=== PATIENT | male | born 1945 | race Caucasian/White ===

== ENCOUNTER 2018-04-04 10:10 | Observation (INO) | payer MEDICARE ==
[~2018-04-04] VITALS: Ht 185.4 cm; Wt 84.1 kg
--- NOTE | ~2018-04-04 | HEMODYNAMI ---
PATIENT:TIMO FLETCHER MEDICAL RECORD: [id number] : 45 [facility] [id number] ADMISSION DATE: 04/04/18 Generatedon:04/04/201816:54 Patient name: TIMO FLETCHER Patient #: [id number] SSN: : 1945 Date of study: 04/04/2018 Page: Of Hemodynamic Procedure Report Patient Data Patient Demographics Procedure consent was obtained First Name: TIMO Gender: Male Last Name: CHANCE : 1945 Patient #: [id number] Age: 72 year(s) Race: Unknown Additional ID: [id number] Contact details Address: [address] [place] [address] State: [place] City: [place] Zip code: [address] Past Medical History Allergies: No known allergies Admission Admission Data Admission Date: 04/04/2018 Admission Time: 10:10 Lab Results Lab Result Date: 04/04/2018 Lab Result Time: 0:00 Biochemistry Name Units Result Min Max BUN mg/dl 20 --(----)*- 7 18 Creatinine mg/dl 0.9 --(-*--)-- 0.6 1.3 CBC Name Units Result Min Max Hemoglobin g/dl 13.9 --(*---)-- 13.5 17.5 Procedure Procedure Types Cath Procedure Diagnostic Procedure [facility] w/Coronaries PCI Procedure Coronary Stent Coronary Stent Initial Procedure Description Procedure Date Procedure Date: 04/04/2018 Procedure Start Time: 16:41 Procedure End Time: 16:52 Procedure Staff Name Function Alfredo Medellin MD Performing Physician Denia Ordaz RT Monitor Robert Araiza RT Scrub Cesario Em RN Nurse Procedure Data Cath Procedure Fluoroscopy Diagnostic fluoroscopy Total fluoroscopy Time: 2.3 time: 2.3 min min Diagnostic fluoroscopy Total fluoroscopy dose: 137 dose: 137 mGy mGy Contrast Material Contrast Material Type Amount (ml) Isovue 300 59 Entry Location Entry Primary Successful Side Size Upsize Upsize Entry Closure Zambrano ccessful Closure Location (Fr) 1 (Fr) 2 (Fr) Remarks Device Remarks Radial Right 6 Fr Mechanical artery Short Compression Estimated blood loss: 10 ml Diagnostic catheters Device Type Used For End Catheter Placement DIAGNOSTIC Cambridge 110cm 5 Procedure Fr catheter ([id number]) Procedure Complications No complications Procedure Medications Medication Administration Route Dosage Oxygen etCO2 Nasal cannula 2 l/min Heparin Flush Bag added to field 2 bags (1000units/500ml NS) 0.9% NaCl I.V. 100 ml/hr Lidocaine 2% added to field 20 Radial Cocktail added to field 1 syringe (Verapomil 2mg/Nitro 400mcg/Heparin 1500units) Fentanyl I.V. 50 mcg Versed I.V. 1 mg Fentanyl I.V. 50 mcg Versed I.V. 1 mg Heparin Bolus I.V. 4000 units Hemodynamics Rest Heart Rate: 66 (bpm) Snapshots Pre Cath Intra NCS Post Cath Vital Signs Time Heart Resp SPO2 etCO2 NIBP (mmHg) Rhythm Pain Sedation Rate (ipm) (%) (mmHg) Status Level (bpm) 16:35:46 63 17 97 0 138/80(120) NSR 0 (11) 10(A) , No pain 16:40:02 65 16 93 0 117/75(101) NSR 0 (11) 10(A) , No pain 16:44:16 65 16 96 0 106/61(80) NSR 0 (11) 9(A) , No pain 16:48:25 66 17 96 0 106/67(91) NSR 0 (11) 9(A) , No pain 16:50:53 62 16 97 0 108/60(83) NSR 0 (11) 9(A) , No pain Medications Time Medication Route Dose Verified Delivered Reason Not es Effectiveness by by 16:37:00 Oxygen etCO2 2 l/min Alfredo Nassar Per physician Nasal Vignesh Em RN cannula 16:37:08 Heparin Flush added 2 bags Alfredo Nassar used for Bag to Vignesh Em RN procedure (1000units/500ml field NS) 16:37:18 0.9% NaCl I.V. 100 Alfredo Cesario Per physician ml/hr Vignesh Em RN 16:37:27 Lidocaine 2% added 20ml Alfredo Nassar used for to vial Vignesh Em generator man field 16:37:35 Radial Cocktail added 1 Alfredo Nassar used for (Verapomil to syringe Vignesh Em RN procedure 2mg/Nitro field 400mcg/Heparin 1500units) 16:40:04 Fentanyl I.V. 50 mcg Alfredo Nassar for sedation Vignesh Em RN 16:40:10 Versed I.V. 1 mg Alfredo Lowryy for sedation Vignesh Em RN 16:42:09 Fentanyl I.V. 50 mcg Alfredo Nassar for sedation Vignesh Em RN 16:42:14 Versed I.V. 1 mg Alfredo Nassar for sedation Vignesh Em RN 16:46:27 Heparin Bolus I.V. 4000 Alfredo Lowryy for units Vignesh Em RN anticoagulation Procedure Log Time Note 16:10:16 Robert Araiza RT(R) sent for patient. Start room use. 16:18:17 Time tracking: Regular hours (M-F 7:00 - 5:00) 16:18:21 Plan of Care:Hemodynamics will remain stable., Cardiac rhythm will remain stable., Comfort level will be maintained., Respiratory function will remain adequate., Patient/ family verbilizes understanding of procedure., Procedure tolerated without complication., Recovers from procedure without complications.. 16:18:23 Signed procedure consent form obtained from patient. 16:18:24 Diagnostic Cath status Elective 16:18:28 H&P Date Dictated: 04/04/2018 ER History on chart.. 16:24:43 Patient received from ED to CCL 3 Alert and oriented. Tansferred to table in Supine position. 16:24:45 Warm blankets applied, and cyndi hugger turned on for patient comfort. 16:24:46 Correct patient and procedure confirmed by team. 16:24:47 ECG and BP/O2 sat monitors applied to patient. 16:34:38 Vital chart was started 16:36:22 Rhythm: sinus rhythm 16:36:23 Full Disclosure recording started 16:36:24 Pre-procedure instructions explained to patient. 16:36:24 Pre-op teaching completed and patient verbalized understanding. 16:36:26 Family in waiting room. 16:36:27 Patient NPO since Midnight. 16:36:33 Patient allergic to No known allergies 16:36:35 Is patient on blood thinner?Yes 16:36:43 PRE LOADED PLAVIX 16:36:44 Patient diabetic? No. 16:36:47 Previous problem with sedation/anesthesia? No ? 16:36:48 Snore? Yes 16:36:50 Sleep apnea? No 16:36:52 Deviated septum? No 16:36:53 Opens mouth fully? Yes 16:36:53 Sticks out tongue? Yes 16:36:55 Airway obstruction? No ? 16:36:57 Dentures? No ? 16:36:59 Modified Tarik's test Ulnar < 7 seconds 16:37:00 Oxygen 2 l/min etCO2 Nasal cannula was administered by Cesario Em RN; Per physician; 16:37:01 Patient pain scale 0/10 ?. 16:37:06 IV patent on arrival in left hand with 0.9% NaCl at [facility]. 16:37:08 Heparin Flush Bag (1000units/500ml NS) 2 bags added to field was administered by Cesario Em RN; used for procedure; 16:37:18 0.9% NaCl 100 ml/hr I.V. was administered by Cesario Em RN; Per physician; 16:37:27 Lidocaine 2% 20ml vial added to field was administered by Cesario Em RN; used for procedure; 16:37:30 Lab Result : BUN 20 mg/dl 16:37:30 Lab Result : Creatinine 0.9 mg/dl 16:37:30 Lab Result : Hemoglobin 13.9 g/dl 16:37:32 Lab results completed and on chart. 16:37:35 Radial Cocktail (Verapomil 2mg/Nitro 400mcg/Heparin 1500units) 1 syringe added to field was administered by Cesario Em RN; used for procedure; 16:37:35 Right Radial & Right Groin area was prepped with chlora-prep and draped in sterile fashion 16:37:36 Alarms reviewed by R. N. 16:37:36 Sharps counted by scrub and verified by R.N. 16:37:38 Use device set Radial Dx or PCI 16:37:39 ACIST Syringe (58992) opened to sterile field. 16:37:40 Bag Decanter () opened to sterile field. 16:37:41 ACIST Hand Control (02099) opened to sterile field. 16:37:41 ACIST Manifold (87064) opened to sterile field. 16:37:42 Tegaderm 4 x 4 (1626W) opened to sterile field. 16:37:43 Medline Cath Pack ([id number]) opened to sterile field. 16:37:44 DIAGNOSTIC WIRE .035 260cm J wire (806324) opened to sterile field. 16:37:44 MBrace Wrist Support ([id number]) opened to sterile field. 16:37:45 SHEATH 6FR Slender (26-8267) opened to sterile field. 16:37:51 --------ALL STOP TIME OUT------ 16:37:52 Final Timeout: patient, procedure, and site verified with staff and physician. All members of the team are in agreement. 16:37:53 Right Radial & Right Groin site verified by team. 16:37:57 Fire Safety Assessment: A--An alcohol-based skin anteseptic being used preoperatively., C--Open oxygen or nitrous oxide is being used., D--An ESU, laser, or fiber-optic light is being used. 16:37:59 Physical assessment completed. ASA score P 2 - A patient with mild systemic disease as per Alfredo Medellin MD. 16:38:02 Sedation plan: IV Moderate Sedation Medication:Versed, Fentanyl 16:40:04 Fentanyl 50 mcg I.V. was administered by Cesario Em RN; for sedation; 16:40:10 Versed 1 mg I.V. was administered by Cesario Em RN; for sedation; 16:41:14 Procedure started. 16:41:17 Local anesthetic to right radial artery with Lidocaine 2% by Alfredo Medellin MD.INITIAL ACCESS ONLY 16:41:24 A 6 Fr Short sheath was inserted into the Right Radial artery 16:41:26 Zero performed for pressure channel P1 16:41:45 Baseline sample Acquired. 16:41:55 A DIAGNOSTIC Cambridge 110cm 5 Fr catheter (674295) was advanced over the wire and used for Procedure. 16:42:09 Fentanyl 50 mcg I.V. was administered by Cesario Em RN; for sedation; 16:42:14 Versed 1 mg I.V. was administered by Cesario Em RN; for sedation; 16:42:17 LV gram done using JOSE 16:42:31 Injector settings: Ml/sec: 7, Volume: 15, 16:42:44 EF : 60 % 16:43:12 RCA angiography performed. 16:44:09 LCA angiography performed. 16:44:11 Catheter exchanged over wire. 16:44:50 CHOICE PT Extra Support 182cm wire ([id number]) opened to sterile field. 16:44:50 INFLATOR Merit BasixCompak (TQ5453) opened to sterile field. 16:45:10 GUIDE 6FR XBLAD 3.5 catheter ([id number]) opened to sterile field. 16:45:26 6 Fr XBLAD 3.5 guide catheter was inserted over the wire 16:45:57 CHOICE ES 182 wire advanced. 16:46:27 Heparin Bolus 4000 units I.V. was administered by Cesario Em RN; for anticoagulation; 16:46:39 Wire advanced across lesion. 16:47:21 Place stent Inflation Number: 1 A INTEGRITY RX 2.75 x 18 stent ([id number]) was prepped and advanced across the Mid LAD. The stent was deployed at 15 WAQAR for 0:10 (min:sec). 16:47:35 Balloon removed over the wire. 16:47:36 Wire removed. 16:47:36 Guide catheter removed. 16:47:42 Procedure ended.(Physican Out) 16:47:50 TR BAND Standard ([id number]) opened to sterile field. 16:47:58 Fluoroscopy time 02.30 minutes. 16:48:02 Fluoroscopy dose: 137 mGy 16:48:02 Flurop Dose total: 137 16:48:06 Contrast amount:Isovue 300 59ml. 16:48:08 Sharps counted by scrub and verified by R.N. 16:48:55 Sheath removed intact; hemostasis achieved with Mechanical Compression to the Right Radial artery. 16:51:02 TR band inflated with 10cc of air. 16:51:05 Post-procedure physical assessment completed. ASA score P 2 - A patient with mild systemic disease as per Alfredo Medellin MD. 16:51:11 Post procedure rhythm: sinus rhythm 16:51:13 Estimated blood loss: 10 ml 16:51:14 Post procedure instruction explained to patient.Patient verbalizes understanding. 16:51:15 Patient needs reinforcement of post procedure teaching. 16:51:21 Procedure type changed to Cath procedure, Diagnostic procedure, LHC, LHC w/Coronaries, PCI procedure, Coronary Stent, Coronary Stent Initial 16:51:22 Procedure and supply charges have been captured, reviewed, submitted and are correct. 16:51:55 Procedure Complication : No complications 16:51:56 Vital chart was stopped 16:51:57 See physician's report for complete and final results. 16:51:59 Report given to PCU. 16:52:06 Patient transfered to PCU with Bed. 16:52:08 Procedure ended. 16:52:08 Full Disclosure recording stopped 16:52:11 End room use (Document Last) Intervention Summary Intervention Notes Time ActionType Lesion and Equipment Action# Pressure Duration Attributes Used 16:47:21 Place stent Mid LAD INTEGRITY RX 1 15 00:10 2.75 x 18 stent ([id number]) Device Usage Item Name Manufacture Quantity Catalog Number Hospital Part Current Mini mal Lot# / Charge Number Stock Stock Serial# Code ACIST Acist 1 25723 900827 921188 279564 20 Syringe Medical (89434) Systems Inc Bag Decanter Microtek 1 2001S 121952 77411 278716 5 (2001S) Medical Inc. ACIST Hand Acist 1 04836 643093 603506 826253 5 Control Medical (79194) Systems Inc ACIST Acist 1 81171 164740 806242 312702 5 Manifold Medical (63651) Systems Inc Tegaderm 4 x 3M 1 1626W 671658 299901 040564 5 4 (1626W) Medline Cath Medline 1 [id number] 182952 81322 512205 5 Pack ([id number]) DIAGNOSTIC St Tushar 1 568680 580056 114532 592094 30 WIRE .035 260cm J wire (166672) MBrace Wrist Advanced 1 140-0250-00 181305 44376 667607 5 Support Vascular (438494643) Dynamics SHEATH 6FR Terumo 1 [id number] 080504 766721 127066 5 Slender (80-1060) DIAGNOSTIC Terumo 1 40-8954 709175 618493 860095 5 Cambridge 110cm 5 Fr catheter (455673) CHOICE PT Oxford 1 [id number] 047218 061926 688797 5 Extra Scientific Support 182cm wire (9242629N2) INFLATOR Merit 1 JC8588 678979 783712 520299 15 [facility] Medical BasixCompak (NC0550) GUIDE 6FR Cardinal 1 [id number] 478532 924882 246921 10 XBLAD 3.5 Health catheter (23569950) INTEGRITY RX Medtronic 1 [id number] 021876 479388 354337 5 [id number] 2.75 x 18 stent ([id number]) TR BAND Terumo 1 [id number] 929776 465488 090088 40 Standard (GRV12HTT) Signature Audit [place] Stage Time Signature Unsigned Intra-Procedure 04/04/2018 Denia Ordaz 4:54:19 PM RT(R) Signatures Monitor : Denia Ordaz Signature : RT Date : Time : [id number] [place] [address]
[2018-04-04] MEDS ORDERED: METOPROLOL TART50 MG PO (10:19)
[2018-04-04] MEDS ORDERED: HYDROCHLOROTH12.5 M1 PO (10:20)
[2018-04-04] MEDS ORDERED: ACCUPRIL20 MG PO (10:20)
[2018-04-04] MEDS ORDERED: MULTI-DAY VITAM1 TAB PO (10:21)
[2018-04-04] MEDS ORDERED: SAW PALMETTO450 MG PO (10:21)
[2018-04-04] MEDS ORDERED: RED YEAST RICE600 MG PO (10:21)
[2018-04-04 11:00] VITALS: BP 139/76
--- NOTE | 2018-04-04 11:00 | NUR ---
PT STABLE, CALL LIGHT WITHIN REACH, WILL CONTINUE MONITOR.
[2018-04-04 11:01] LABS: BASOPHILS 0.6 % (0-2); EOSINOPHILS 2.1 % (0-7); HEMATOCRIT 40.4 % (42.0-54.0); HEMOGLOBIN 13.9 g/dL (13.5-17.5); IMMATURE GRANULOCYTES 0.2 % (0-5); LYMPHOCYTES 24.7 % (15-50); MCH 31.5 pg (26.0-34.0); MCHC 34.4 g/dL (31.0-37.0); MCV 91.6 fL (80.0-100.0); MONOCYTES 10.5 % (2-11); NEUTROPHILS 61.9 % (40-80); PLATELET COUNT 191 10x3/uL (130-400); RBC 4.41 10x6/uL (4.20-6.10); RDW 12.8 % (11.5-14.5); WBC 5.2 10x3/uL (4.8-10.8)
[2018-04-04 11:10] LABS: INR 1.04 (0.85-1.17); PROTIME 13.1 SECONDS (11.6-15.0)
[2018-04-04 11:18] LABS: ALBUMIN 3.6 g/dL (3.4-5.0); ALKALINE PHOSPHATASE 56 U/L (46-116); ALT (SGPT) 26 U/L (10-68); BILIRUBIN - TOTAL 0.46 mg/dL (0.2-1.3); CALC OSMOLALITY 283 mosm/kg (275-300); CALCIUM 8.9 mg/dL (8.5-10.1); CARBON DIOXIDE 29.5 mmol/L (21.0-32.0); CHLORIDE - SERUM 105 mmol/L (98-107); CREATININE - SERUM 0.9 mg/dL (0.6-1.3); GLUCOSE 94 mg/dL (74-106); SODIUM 141 mmol/L (136-145); UREA NITROGEN 20 mg/dL (7-18); eGFR NON AFRICAN AMERICAN 88 mL/min (90-120)
[2018-04-04 11:33] LABS: CKMB 6.1 U/L (0.0-3.6); CREATINE KINASE 132 UL (21-232); MAGNESIUM - SERUM 2.1 mg/dL (1.8-2.4)
[2018-04-04 11:34] LABS: TROPONIN-I 2.443 ng/mL (0.000-0.060)
[2018-04-04 12:09] VITALS: BP 127/84
--- NOTE | 2018-04-04 12:16 | NUR ---
NAVEED CONTACTED AT THIS TIME.
--- NOTE | 2018-04-04 14:00 | NUR ---
PT STABLE, CALL LIGHT WITHIN REACH, WILL CONTINUE TO MONITOR.
--- NOTE | 2018-04-04 15:30 | NUR ---
PREOP COMPLETE. PT STABLE, CALL LIGHT WITHIN REACH, WILL CONTINUE TO MONITOR.
[2018-04-04 16:00] VITALS: BP 147/71
--- NOTE | 2018-04-04 16:07 | NUR ---
NITRO BID AND BENEDRYL ADMINISTERED PREOP AT THIS TIME. NO ORDER IN AT THIS TIME AND WAS UNABLE TO ADD ORDER. BENEDRYL GIVEN IN LEFT FOREARM 20 GA. NITRO BID PLACED ON RIGHT RADIAL WRIST. TERRANCE IN DOCUMENTATION DESIGNER INFORMED.
--- NOTE | 2018-04-04 16:16 | NUR ---
TERRANCE FROM NURSES SUPERINTENDENT HERE TO TRANSPORT PT.
--- NOTE | 2018-04-04 17:18 | NUR ---
TRANSFER FROM SOCK LINING STITCHER BY BED. OREINTED TO ROOM. CALL LIGHT IN REACH. RIGHT WRIST STABLE WITH TR BAND INTACT. WILL MONITOR.
[2018-04-04 17:40] VITALS: BP 111/65; Ht 185.4 cm; Wt 84.1 kg
--- NOTE | 2018-04-04 19:28 | NUR ---
RESUMED CARE OF PT, LYING IN BED RESPIRATIONS EVEN AND UNLABORED ON 2LPM VIA NC. 57 SB ON TELEMETRY. LEFT FOREARM INFUSING NS @ 100. RIGHT WRIST TR BAND INFLATED. CALL LIGHT IN REACH. SEE NURSE ASSESSMENT.
[2018-04-04 20:00] VITALS: BP 99/63
--- NOTE | 2018-04-04 20:45 | NUR ---
3 CC OF AIR REMOVED FROM TR BAND
[2018-04-05 00:43] VITALS: BP 117/67
[2018-04-05 04:00] VITALS: BP 115/66
[2018-04-05 07:58] VITALS: BP 119/70
[2018-04-05] MEDS ORDERED: BAYER CHEWABLE81 MG PO (09:03)
[2018-04-05] MEDS ORDERED: PLAVIX75 MG PO (09:03)
--- NOTE | 2018-04-05 09:39 | NUR ---
IV AND TELEMETRY DCD. DC PLANS GIVEN. UNDERSTANDING VOICED. ESCORTED TO CAR BY W/C.
--- NOTE | 2018-04-06 07:45 | MORECARE ---
CASE MANAGEMENT DISCHARGE SUMMARY PATIENT: TIMO FLETCHER UNIT: [id number] ADM DATE: 04/04/18 AGE: 72 : [birth year] SEX: M ROOM/BED: D.2116 AUTHOR: SILVIA MELGAR PHYSICIAN: REFERRING PHYSICIAN: ALY LUCIO MD DATE OF SERVICE: 04/06/18 Discharge Plan Patient Name: [facility]LETCHER [facility] [facility] 1945 Planned Disposition: Home Anticipated Discharge Date: 04/05/18 Discharge Date: 04/05/2018 Expected LOS: 1 Initial Reviewer: [email or web address] Initial Review Date: 04/06/2018 Generated: 04/06/18 8:45 am Patient Name: TIMO FLETCHER Page 41178 at 0745 All edits/amendments must be made on the electronic document DICTATION DATE: 04/06/1844 PIPE FINISHER: JESSICA 04/06/18 0744 RPT#: [id number] DC DATE:04/05/18 STATUS: DIS IN [facility] [address] [place] [address] END OF REPORT
--- NOTE | 2018-04-09 11:45 | OP ---
PATIENT NAME: TIMO FLETCHER MEDICAL RECORD: [id number] :45 LOCATION:D.M2 D.2116 ADMISSION DATE:04/04/18 SURGEON: ALY LUCIO MD DATE OF OPERATION: 04/04/2018 DATE OF SERVICE: 04/04/2018 PROCEDURES: 1. PTCA stent LAD. 2. Left heart catheterization. 3. Selective coronary angiography. 4. Left ventriculogram. INDICATION: Angina and coronary artery disease. DESCRIPTION OF PROCEDURE: After informed consent was obtained and after a detailed description of risks, benefits as well as alternative therapies, the patient elected to proceed with angiogram and angioplasty. The right radial area was prepped and draped in normal sterile fashion. Right radial artery was cannulated via modified Seldinger technique with placement of 6-[place] sheath. All catheters exchanged through this sheath. FINDINGS: Left ventriculogram was performed in standard 30-degree JOSE view, reveals good cardiac wall motion throughout all segments. Overall ejection fraction estimated at 55-60%. SELECTIVE CORONARY ANGIOGRAPHY: 1. Left main is with no significant angiographic disease. 2. Left anterior descending had 70+ percent stenosis in the mid vessel that was hazy. 3. Left circumflex has moderate irregularities, but no flow-limiting stenosis. 4. Right coronary has moderate irregularities, but no flow-limiting stenosis. PTCA STENT OF THE LAD: The stent used was 2.75 x 18-mm Integrity. Result was 0% residual stenosis. OVERALL IMPRESSION: Successful percutaneous transluminal coronary angioplasty stent of the left anterior descending going from greater than 70% initial stenosis to 0% residual stenosis. TRANSINT:[id number] Voice Confirmation ID: [id number] DOCUMENT ID: [id number] ALY LUCIO MD at 1145 CC: [id number] DICTATION DATE: 04/04/18 1656 BOOK TRIMMER: 04/04/18 1758 DIS IN 04/05/18 [place] [address]
--- NOTE | 2018-04-09 11:45 | CN ---
PATIENT NAME:TIMO FLETCHER MEDICAL RECORD: [id number] : 45 LOCATION:[facility] D.2116 ADMIT DATE: 04/04/18 ACCOUNT: [id number] CONSULTING PHYSICIAN: ALY LUCIO MD REFERRING PHYSICIAN: ALY LUCIO MD DATE OF CONSULTATION: 04/04/2018 DIAGNOSES: 1. Chest pain. 2. Hypertension. 3. Hyperlipidemia. HISTORY OF PRESENT ILLNESS: This is a gentleman with a history of a stress test within the past year that was normal, done at our office. Today while on the toilet, strained and had a chest pain that was positional, he straightened up, the chest pain resolved. His EKG is normal. Troponin is normal. He has had no further episodes of pain. PHYSICAL EXAMINATION: GENERAL APPEARANCE: Well-nourished, well-developed, appears stated age. Level of distress, comfortable. PSYCHIATRIC: Mental status, alert, normal affect. Orientation, oriented to time, place and person. EYES: Lids and conjunctiva, noninjected. No discharge, no pallor. ENT: Lips, teeth, gums, normal dentition. Oropharynx, no cyanosis, no pallor. NECK: Carotid arteries, bilateral normal upstroke, no bruits, no thrills. JUGULAR VEINS: No jugular venous pressure or distention. CERVICAL LYMPH NODES: Nontender, nonenlarged. THYROID: Not enlarged. Nontender. No nodules. LUNGS: Respiratory effort, unlabored. CHEST: Normal curvature. No thoracic deformity. No chest wall tenderness. Percussion, resonant. Auscultation, clear. No wheezes, no rales, no rhonchi. CARDIOVASCULAR: Precordial exam, nondisplaced. No heaves or pericardial thrills. Rate and rhythm, regular. Heart sounds, normal S1, normal S2. No S3, no gallop, no rub. Systolic murmur, not heard. Diastolic murmur, not heard. EXTREMITIES: No cyanosis, no edema. Peripheral pulses, full and equal in all extremities, except as noted. No bruits appreciated. ABDOMEN: Soft, nondistended. Normal aorta. No bruit. Nontender. No masses. Liver, nontender, no hepatomegaly. Spleen, nontender, no splenomegaly. MUSCULOSKELETAL: No joint tenderness. No joint swelling. No erythema. NEUROLOGICAL: Normal gait, normal strength, normal tone. SKIN: Warm and dry. OVERALL IMPRESSION: Chest pain is positional, most likely musculoskeletal in nature. No other cardiac workup or treatment is necessary at this time. TRANSINT:[id number] Voice Confirmation ID: [id number] DOCUMENT ID: [id number] ADDENDUM: Mr. Fletcher had an increased troponin and had recurrent chest pain, hence cardiac catheterization will be performed. Dictation ID [id number] CONSULT REPORT [id number] TIMO FLETCHER, ALY CASTILLO at 1145 CC: [id number] DICTATION DATE: 04/04/18 1108 RN TRANSITION: 04/04/18 1137 DIS IN 04/05/18 [id number] [place] [address]
== END 2018-04-05 09:43 | disposition home or self-care (01) ==
LOC: D.CATH 10:10 → D.ER 10:10 → EDSTATUS 13:49 → D.M2 17:02 → D.CATH 17:40 → D.M2 17:41 → OBSVTIME 17:42 → D.M2 04-05 09:43
PROVIDERS: Family Medicine; ADMIT Internal Medicine Interventional Cardiology
DX: I25.119 Atherosclerotic heart disease of native coronary artery with unspecified angina pectoris (principal)

== ENCOUNTER 2018-04-08 02:57 | Emergency (ER) | payer MEDICARE ==
[~2018-04-08] VITALS: Ht 185.4 cm; Wt 83.9 kg
[~2018-04-08 02:57] MED LIST: ACCUPRIL20 MG PO; BAYER CHEWABLE81 MG PO; HYDROCHLOROTH12.5 M1 PO; METOPROLOL TART50 MG PO; MULTI-DAY VITAM1 TAB PO; PLAVIX75 MG PO; RED YEAST RICE600 MG PO; SAW PALMETTO450 MG PO
[2018-04-08 03:14] VITALS: Ht 185.4 cm; Wt 83.9 kg
[2018-04-08] MEDS ORDERED: VOLTAREN75 MG PO (04:48)
[2018-04-08 05:25] VITALS: BP 143/81
== END 2018-04-08 05:20 | disposition home or self-care (01) ==
LOC: D.ER 02:57
DX: M75.52 Bursitis of left shoulder (principal)

== ENCOUNTER 2018-05-04 08:59 | Outpatient (CLI) | payer MEDICARE ==
[~2018-05-04] VITALS: Ht 185.4 cm; Wt 81.8 kg
--- NOTE | ~2018-05-04 | HEMODYNAMI ---
PATIENT:TIMO FLETCHER MEDICAL RECORD: [id number] : 45 LOCATION:DMileCAT ADMISSION DATE: 05/04/18 Generatedon:05/04/201814:24 Patient name: TIMO FLETCHER Patient #: [id number] SSN: : 1945 Date of study: 05/04/2018 Page: Of Hemodynamic Procedure Report Patient Data Patient Demographics Procedure consent was obtained First Name: TIMO Gender: Male Last Name: CHANCE : 1945 Patient #: [id number] Age: 72 year(s) Race: Unknown Additional ID: [id number] Contact details [address]: [address] [place] [address] State: [place] City: [place] Zip code: [address] Past Medical History Allergies: No known allergies Admission Admission Data Admission Date: 05/04/2018 Admission Time: 8:59 Weight (lbs.): 180.78 Weight (kg.): 82 Lab Results Lab Result Date: 05/04/2018 Lab Result Time: 0:00 Biochemistry Name Units Result Min Max BUN mg/dl 16 --(---*)-- 7 18 Creatinine mg/dl 1 --(--*-)-- 0.6 1.3 CBC Name Units Result Min Max Hemoglobin g/dl 14.5 --(*---)-- 13.5 17.5 Platelets 10^3/l 193 --(*---)-- 130 400 Procedure Procedure Types Cath Procedure Diagnostic Procedure [facility] w/Coronaries PCI Procedure Coronary Stent Coronary Stent Initial Procedure Description Procedure Date Procedure Date: 05/04/2018 Procedure Start Time: 14:14 Procedure End Time: 14:23 Procedure Staff Name Function Alfredo Medellin MD Performing Physician Pennie Matthews RN Nurse Robert Araiza RT Scrub Manny Hernandez RT Monitor Procedure Data Cath Procedure Fluoroscopy Diagnostic fluoroscopy Total fluoroscopy Time: 2 time: 2 min min Diagnostic fluoroscopy Total fluoroscopy dose: dose: 175.33 mGy 175.33 mGy Contrast Material Contrast Material Type Amount (ml) Isovue 300 73 Entry Location Entry Primary Successful Side Size Upsize Upsize Entry Closure Zambrano ccessful Closure Location (Fr) 1 (Fr) 2 (Fr) Remarks Device Remarks Radial Right 6 Fr Mechanical artery Short Compression Diagnostic catheters Device Type Used For End Catheter Placement DIAGNOSTIC Lagrange 110cm 5 LV Angiography Fr catheter ([id number]) Procedure Complications No complications Procedure Medications Medication Administration Route Dosage 0.9% NaCl I.V. 100 ml/hr Oxygen etCO2 Nasal cannula 2 l/min Lidocaine 2% added to field 20 Heparin Flush Bag added to field 2 bags (1000units/500ml NS) Radial Cocktail added to field 1 syringe (Verapomil 2mg/Nitro 400mcg/Heparin 1500units) Versed I.V. 2 mg Fentanyl I.V. 50 mcg Heparin Bolus I.V. 4000 units Versed I.V. 2 mg Fentanyl I.V. 50 mcg Hemodynamics Rest HGB: 14.5 (g/dl) Heart Rate: 60 (bpm) Snapshots Pre Cath Intra NCS Post Cath Vital Signs Time Heart Resp SPO2 etCO2 NIBP (mmHg) Rhythm Pain Sedation Rate (ipm) (%) (mmHg) Status Level (bpm) 13:41:25 59 16 99 42.3 153/75(122) SB 0 (11) 10(A) , No pain 13:45:51 56 13 98 43.8 126/71(106) SB 0 (11) 10(A) , No pain 13:50:17 57 11 96 39.3 135/66(107) SB 0 (11) 10(A) , No pain 13:54:37 58 13 97 37 122/69(88) SB 0 (11) 10(A) , No pain 13:58:53 58 17 96 14 122/68(84) SB 0 (11) 10(A) , No pain 14:03:11 58 13 96 15 113/65(92) SB 0 (11) 10(A) , No pain 14:07:28 54 17 95 12.1 118/68(103) SB 0 (11) 10(A) , No pain 14:11:48 49 16 96 7.5 111/62(88) SB 0 (11) 10(A) , No pain 14:16:00 60 19 96 21.1 93/55(70) SB 0 (11) 9(A) , No pain 14:20:11 57 14 97 15.1 100/60(79) SB 0 (11) 10(A) , No pain Medications Time Medication Route Dose Verified Delivered Reason Not es Effectiveness by by 13:44:18 0.9% NaCl I.V. 100 Alfredo Pennie used for ml/hr Vignesh Matthews training intern 13:44:26 Oxygen etCO2 2 l/min Alfredo Pennie used for Nasal Vignesh Matthews procedure cannula RN 13:44:32 Lidocaine 2% added 20ml Alfredo Alfredo for local to vial Vignesh Medellin MD anesthetic field 13:44:37 Heparin Flush added 2 bags Alfredo Alfredo used for Bag to Vignesh Medellin MD procedure (1000units/500ml field NS) 13:44:43 Radial Cocktail added 1 Alfredo Alfredo used for (Verapomil to syringe Vignesh Medellin MD procedure 2mg/Nitro field 400mcg/Heparin 1500units) 14:10:10 Versed I.V. 2 mg Alfredo Pennie for sedation Vignesh Matthews RN 14:10:16 Fentanyl I.V. 50 mcg Alfredo Pennie for sedation Vignesh Matthews RN 14:15:54 Versed I.V. 2 mg Alfredo Pennie for sedation Vignesh Matthews RN 14:15:58 Fentanyl I.V. 50 mcg Alfredo Pennie for sedation Vignesh Matthews RN 14:18:35 Heparin Bolus I.V. 4000 Alfredo Pennie for andrés ified units Vignesh Matthews anticoagulation with Dr. BALTAZAR Medellin Procedure Log Time Note 13:22:09 Robert Araiza RT(R) sent for patient. Start room use. 13:22:10 Time tracking: Regular hours (M-F 7:00 - 5:00) 13:22:14 Plan of Care:Hemodynamics will remain stable., Cardiac rhythm will remain stable., Comfort level will be maintained., Respiratory function will remain adequate., Patient/ family verbilizes understanding of procedure., Procedure tolerated without complication., Recovers from procedure without complications.. 13:23:20 Patient Weight : 180.78 lbs 13:23:36 Lab Result : Hemoglobin 14.5 g/dl 13:23:36 Lab Result : Creatinine 1 mg/dl 13:23:36 Lab Result : BUN 16 mg/dl 13:23:36 Lab Result : Platelets 193 10^3/l 13:33:37 Patient received from ED to CCL 3 Alert and oriented. Tansferred to table in Supine position. 13:33:38 Warm blankets applied, and cyndi hugger turned on for patient comfort. 13:33:38 Correct patient and procedure confirmed by team. 13:33:39 Signed procedure consent form obtained from patient. 13:33:40 ECG and BP/O2 sat monitors applied to patient. 13:39:57 Vital chart was started 13:44:18 0.9% NaCl 100 ml/hr I.V. was administered by Pennie Matthews RN; used for procedure; 13:44:26 Oxygen 2 l/min etCO2 Nasal cannula was administered by Pennie Matthews RN; used for procedure; 13:44:32 Lidocaine 2% 20ml vial added to field was administered by Alfredo Medellin MD; for local anesthetic; 13:44:37 Heparin Flush Bag (1000units/500ml NS) 2 bags added to field was administered by Alfredo Medellin MD; used for procedure; 13:44:43 Radial Cocktail (Verapomil 2mg/Nitro 400mcg/Heparin 1500units) 1 syringe added to field was administered by Alfredo Medellin MD; used for procedure; 13:49:44 Baseline sample Acquired. 13:49:51 Rhythm: sinus rhythm 13:49:55 Full Disclosure recording started 13:49:58 H&P Date Dictated: 05/04/2018 Within 30 days and on chart.. 13:49:59 Pre-procedure instructions explained to patient. 13:49:59 Pre-op teaching completed and patient verbalized understanding. 13:50:13 Family in waiting room. 13:50:15 Patient NPO since Midnight. 13:50:32 Patient allergic to No known allergies 13:50:36 Is the patient allergic to Iodine/contrast media? No. 13:50:39 Is patient on blood thinner?Yes 13:50:42 ACC The patient was administered the following blood thiners within the last 24 hours: ACCPlavix 13:50:44 Patient diabetic? No. 13:50:47 ----Pre-sedation anethsthesia assessment.---- 13:50:49 Previous problem with sedation/anesthesia? No ? 13:50:50 Snore? Yes 13:50:51 Sleep apnea? No 13:50:52 Deviated septum? Yes 13:50:54 Opens mouth fully? Yes 13:50:55 Sticks out tongue? Yes 13:50:58 Airway obstruction? No ? 13:51:03 Dentures? No ? 13:51:07 Pre procedure: right dorsailis pedis pulse 2+ Normal; easily identifiable; not easily obliterated 13:51:10 Modified Tarik's test Ulnar < 7 seconds 13:51:13 Patient pain scale 0/10 ?. 13:51:17 IV patent on arrival in right antecubital with 0.9% NaCl at 10ml/hr. 13:51:20 Lab results completed and on chart. 13:51:23 Right Radial & Right Groin area was prepped with chlora-prep and draped in sterile fashion 13:51:24 Alarms reviewed by R. N. 13:51:25 Sharps counted by scrub and verified by R.N. 14:08:35 Physician arrived 14:08:35 --------ALL STOP TIME OUT------ 14:08:36 Final Timeout: patient, procedure, and site verified with staff and physician. All members of the team are in agreement. 14:08:38 Right Radial & Right Groin site verified by team. 14:08:42 Maximum allowable Isovue 300 dose 300ml. Physician notified. (300ml for normal creatinines. For patients with creatinine of 1.7 or higher multiply weight(kg) x 5 divided by creatinine.) 14:08:46 Fire Safety Assessment: A--An alcohol-based skin anteseptic being used preoperatively., C--Open oxygen or nitrous oxide is being used., D--An ESU, laser, or fiber-optic light is being used. 14:08:49 Physical assessment completed. ASA score P 2 - A patient with mild systemic disease as per Alfredo Medellin MD. 14:08:53 Sedation plan: IV Moderate Sedation Medication:Versed, Fentanyl 14:10:10 Versed 2 mg I.V. was administered by Pennie Matthews RN; for sedation; 14::16 Fentanyl 50 mcg I.V. was administered by Pennie Byron RN; for sedation; 14:13:14 Zero performed for pressure channel P1 14:13:56 Procedure started. 14:14:16 Local anesthetic to right radial artery with Lidocaine 2% by Alfredo Medellin MD.INITIAL ACCESS ONLY 14:14:23 A 6 Fr Short sheath was inserted into the Right Radial artery 14:15:23 Use device set Radial Dx or PCI 14:15:32 ACIST Syringe (90382) opened to sterile field. 14:15:35 Bag Decanter (2001S) opened to sterile field. 14:15:36 Medline Cath Pack ([id number]) opened to sterile field. 14:15:36 DIAGNOSTIC WIRE .035 260cm J wire (661060) opened to sterile field. 14:15:37 ACIST Hand Control (27002) opened to sterile field. 14:15:38 ACIST Manifold (38733) opened to sterile field. 14:15:39 Tegaderm 4 x 4 (1626W) opened to sterile field. 14:15:49 MBrace Wrist Support ([id number]) opened to sterile field. 14:15:53 SHEATH 6FR Slender (78-4842) opened to sterile field. 14:15:54 Versed 2 mg I.V. was administered by Pennie Matthews RN; for sedation; 14:15:58 Fentanyl 50 mcg I.V. was administered by Pennie Matthews RN; for sedation; 14:15:59 A DIAGNOSTIC Lagrange 110cm 5 Fr catheter (658550) was advanced over the wire and used for LV Angiography. 14:16:02 LV angiography performed. 14:16:07 EF : 55 % 14:16:39 INFLATOR Merit BasixCompak (BA9409) opened to sterile field. 14:16:40 CHOICE PT Extra Support 182cm wire ([id number]) opened to sterile field. 14:16:49 LCA angiography performed. 14:16:51 RCA angiography performed. 14:17:19 Catheter exchanged over wire. 14:17:31 GUIDE 6FR XBLAD 3.5 catheter ([id number]) opened to sterile field. 14:17:43 6 Fr XBLAD 3.5 guide catheter was inserted over the wire 14:17:48 CPTES wire advanced. 14:18:35 Heparin Bolus 4000 units I.V. was administered by Pennie Byron RN; for anticoagulation; verified with Dr. Medellin 14:20:31 Place stent Inflation Number: 1 A INTEGRITY RX 2.75 x 12 stent ([id number]) was prepped and advanced across the Prox CX. The stent was deployed at 13 WAQAR for 0:12 (min:sec). 14:21:23 Stent catheter was removed intact over wire. 14:21:24 Wire removed. 14:21:24 Guide catheter removed. 14:21:34 Sheath removed intact; hemostasis achieved with Mechanical Compression to the Right Radial artery. 14:21:36 Procedure ended.(Physican Out) 14:22:12 Fluoroscopy time 02.00 minutes. 14:22:20 Fluoroscopy dose: 175.33 mGy 14:22:20 Flurop Dose total: 175.33 14:22:27 Contrast amount:Isovue 300 73ml. 14:22:29 Sharps counted by scrub and verified by R.N. 14:22:31 TR band inflated with 10cc of air. 14:22:40 Post right radial artery:stable 14:22:41 Post Procedure Pulses reassessed and unchanged 14:22:45 Post procedure: right dorsailis pedis pulse 2+ Normal; easily identifiable; not easily obliterated. 14:22:48 Post procedure rhythm: sinus rhythm 14:22:50 Post procedure instruction explained to patient.Patient verbalizes understanding. 14:22:52 Procedure and supply charges have been captured, reviewed, submitted and are correct. 14:23:00 Procedure Complication : No complications 14:23:03 Vital chart was stopped 14:23:03 See physician's report for complete and final results. 14:23:12 Report given to Pre/Post Procedure Room. 14:23:16 Patient transfered to Pre/Post Procedure Room with Stretcher. 14:23:20 Procedure ended. 14:23:20 Full Disclosure recording stopped 14:23:24 End room use (Document Last) 14:23:35 Procedure type changed to Cath procedure, Diagnostic procedure, LHC, LHC w/Coronaries, PCI procedure, Coronary Stent, Coronary Stent Initial Intervention Summary Intervention Notes Time ActionType Lesion and Equipment Action# Pressure Duration Attributes Used 14:20:31 Place stent Prox CX INTEGRITY RX 1 13 00:12 2.75 x 12 stent ([id number]) Device Usage Item Name Manufacture Quantity Catalog Number Hospital Part Current Mini mal Lot# / Charge Number Stock Stock Serial# Code ACIST Acist 1 13635 779453 312113 593367 20 Syringe Medical (74726) Systems Inc Bag Decanter Microtek 1 2001S 361004 75892 318900 5 () Medical Inc. Medline Cath Medline 1 [id number] 341094 12578 278974 5 Pack ([id number]) DIAGNOSTIC St Tushar 1 944186 111819 686119 447536 30 WIRE .035 260cm J wire (272526) ACIST Hand Acist 1 82030 910087 369645 885409 5 Control Medical (28594) Systems Inc ACIST Acist 1 45962 872881 070939 706761 5 Manifold Medical (28920) Systems Inc Tegaderm 4 x 3M 1 1626W 021366 205799 149230 5 4 (1626W) MBrace Wrist Advanced 1 140-0250-00 621908 37949 844283 5 Support Vascular (183004098) Dynamics SHEATH 6FR Terumo 1 [id number] 253643 220243 239192 5 Slender (80-1060) DIAGNOSTIC Terumo 1 40-4753 886929 288134 407139 5 Lagrange 110cm 5 Fr catheter (143405) INFLATOR Merit 1 OU9227 909148 850092 028666 15 [facility] Medical BasixCompak (DP3606) CHOICE PT [place] 1 [id number] 246843 879934 893156 5 Extra Scientific Support 182cm wire ([id number]) GUIDE 6FR Cardinal 1 [id number] 776458 604701 767759 10 XBLAD 3.5 Health catheter ([id number]) INTEGRITY RX Medtronic 1 [id number] 113767 309128 806034 5 [id number] 2.75 x 12 stent ([id number]) Signature Audit [place] Stage Time Signature Unsigned Intra-Procedure 05/04/2018 Manny Hernandez RT(Blanche) 2:24:34 PM Signatures Monitor : Manny Hernandez RT Signature : Date : Time : [facility] [address] [place] [address]
--- NOTE | ~2018-05-04 | OP ---
PATIENT NAME: TIMO FLETCHER MEDICAL RECORD: [id number] :45 LOCATION:D.CAT ADMISSION DATE: SURGEON: ALY LUCIO MD DATE OF OPERATION: 05/04/2018 PROCEDURES: 1. PTCA and stent to the left circumflex. 2. Left heart catheterization. 3. Selective coronary angiography. 4. Left ventriculogram. INDICATIONS: Angina and coronary artery disease. PROCEDURE PERFORMED: After informed consent was obtained after detailed description of risks, benefits as well as alternative therapies, the patient elected to proceed with angiogram and angioplasty. The right radial area was prepped and draped in normal sterile fashion. Right radial artery was cannulated via modified Seldinger technique with placement of 6-[place] sheath. All catheters exchanged through this sheath. FINDINGS: Left ventriculogram was performed in standard 30-degree JOSE view, reveals good cardiac wall motion throughout all segments. Overall ejection fraction estimated at 60%. SELECTIVE CORONARY ANGIOGRAPHY: 1. Left main showed no significant angiographic disease. 2. Left anterior descending has a previously placed stent. This is widely patent. There is no disease elsewise at the LAD or its branches. 3. Left circumflex has 75% stenosis proximally. 4. Right coronary has moderate irregularities but no flow-limiting stenosis. PTCA AND STENT OF THE LEFT CIRCUMFLEX: The stent used was a 3.0 x 12 mm Integrity. Result was 0% residual stenosis. OVERALL IMPRESSION: Successful percutaneous transluminal angioplasty stent of the left circumflex going from 75% initial stenosis to 0% residual. TRANSINT:[id number] Voice Confirmation ID: [id number] DOCUMENT ID: [id number] ALY LUCIO MD CC: [id number] DICTATION DATE: 05/04/181425 QUARRY EQUIPMENT OPERATOR: 05/04/18 2249 DEP CLI 05/04/18 [place] [address]
--- NOTE | ~2018-05-04 | CN ---
PATIENT NAME:TIMO FLETCHER MEDICAL RECORD: [id number] : 45 LOCATION:D.CAT ADMIT DATE: ACCOUNT: [id number] CONSULTING PHYSICIAN: ALY LUCIO MD REFERRING PHYSICIAN: ALY LUCIO MD DATE OF CONSULTATION: 05/04/2018 Cardiology Consultation DIAGNOSES: 1. Angina. 2. Abnormal ECG. 3. Hypertension. 4. Hyperlipidemia. 5. Recent percutaneous transluminal coronary angioplasty and stent of the left anterior descending. HISTORY OF PRESENT ILLNESS: Mr. Fletcher presents with recurrent anginal symptomatology, underwent PTCA and stent of the LAD 1 week ago. He has significant T-wave inversions laterally on his EKG. PHYSICAL EXAMINATION: GENERAL APPEARANCE: Well nourished, well developed, appears stated age. Level of distress, comfortable. PSYCHIATRIC: Mental status, alert, normal affect. Orientation, oriented to time, place and person. EYES: Lids and conjunctiva, noninjected. No discharge, no pallor. ENT: Lips, teeth, gums, normal dentition. Oropharynx, no cyanosis, no pallor. NECK: Carotid arteries, bilateral normal upstroke, no bruits, no thrills. JUGULAR VEINS: No jugular venous pressure or distention. CERVICAL LYMPH NODES: Nontender, nonenlarged. THYROID: Not enlarged. Nontender. No nodules. LUNGS: Respiratory effort, unlabored. CHEST: Normal curvature. No thoracic deformity. No chest wall tenderness. Percussion, resonant. Auscultation, clear. No wheezes, no rales, no rhonchi. CARDIOVASCULAR: Precordial exam, nondisplaced. No heaves or pericardial thrills. Rate and rhythm, regular. Heart sounds, normal S1, normal S2. No S3, no gallop, no rub. Systolic murmur, not heard. Diastolic murmur, not heard. EXTREMITIES: No cyanosis, no edema. Peripheral pulses, full and equal in all extremities, except as noted. No bruits appreciated. ABDOMEN: Soft, nondistended. Normal aorta. No bruit. Nontender. No masses. Liver, nontender, no hepatomegaly. Spleen, nontender, no splenomegaly. MUSCULOSKELETAL: No joint tenderness. No joint swelling. No erythema. NEUROLOGICAL: Normal gait, normal strength, normal tone. SKIN: Warm and dry. OVERALL IMPRESSION: With his recurrent chest pain and a grossly abnormal ECG, we will proceed with repeat coronary angiography. Further care depends upon findings of the angiography. TRANSINT:[id number] Voice Confirmation ID: [id number] DOCUMENT ID: [id number] CONSULT REPORT [id number] TIMO FLETCHER JEFFREY MD CC: [id number] DICTATION DATE: 05/04/18 142 ENERGY DERIVATIVES TRADER: 05/04/18 2310 DEP CLI 05/04/18 [place] [id number]
[~2018-05-04 08:59] MED LIST changes: +VOLTAREN75 MG PO
[2018-05-04 09:01] VITALS: Ht 185.4 cm; Wt 81.8 kg
[2018-05-04 09:57] LABS: ALBUMIN 3.8 g/dL (3.4-5.0); ALKALINE PHOSPHATASE 65 U/L (46-116); ALT (SGPT) 19 U/L (10-68); APTT 28.4 SECONDS (22.8-39.4); BILIRUBIN - TOTAL 0.39 mg/dL (0.2-1.3); CALC OSMOLALITY 278 mosm/kg (275-300); CALCIUM 9.2 mg/dL (8.5-10.1); CARBON DIOXIDE 33.4 mmol/L (21.0-32.0); CHLORIDE - SERUM 103 mmol/L (98-107); GLUCOSE 81 mg/dL (74-106); INR 1.05 (0.85-1.17); POTASSIUM - SERUM 4.3 mmol/L (3.5-5.1); PROTEIN - SERUM 7.5 g/dL (6.4-8.2); PROTIME 13.2 SECONDS (11.6-15.0); SODIUM 140 mmol/L (136-145); UREA NITROGEN 16 mg/dL (7-18); eGFR NON AFRICAN AMERICAN 78 mL/min (90-120)
[2018-05-04 10:09] LABS: CKMB 1.1 U/L (0.0-3.6); CREATINE KINASE 80 UL (21-232); MAGNESIUM - SERUM 2.2 mg/dL (1.8-2.4); TROPONIN-I < 0.017 ng/mL (0.000-0.060)
[2018-05-04 10:19] LABS: BASOPHILS 0.8 % (0-2); EOSINOPHILS 4.5 % (0-7); HEMATOCRIT 43.4 % (42.0-54.0); HEMOGLOBIN 14.5 g/dL (13.5-17.5); LYMPHOCYTES 27.3 % (15-50); MCHC 33.4 g/dL (31.0-37.0); MCV 92.9 fL (80.0-100.0); MEAN PLATELET VOLUME 11.2 fL (7.4-10.4); MONOCYTES 14.2 % (2-11); NEUTROPHILS 53.2 % (40-80); PLATELET COUNT 193 10x3/uL (130-400); RBC 4.67 10x6/uL (4.20-6.10); WBC 5.1 10x3/uL (4.8-10.8)
[2018-05-04 13:29] VITALS: BP 142/76
--- NOTE | 2018-05-04 14:55 | NUR ---
PT MORE ALERT. SET UP WITH DRINK AND SANDWICH TRAY. VSS.
[2018-05-04] MEDS ORDERED: NITROQUICK0.4 MG SL (15:18)
--- NOTE | 2018-05-04 15:23 | NUR ---
PT SITTING UP. VSS. RIGHT RADIAL TR BAND IN PLACE. NO BLEEDING/HEMATOMA.
--- NOTE | 2018-05-04 15:59 | NUR ---
PT RESTING COMFORTABLY. VSS. RIGHT RADIAL TR BAND IN PLACE. NO BLEEDING/HEMATOMA NOTED. CALL LIGHT WITHIN REACH. GAVE PT'S HIS PRESCRIPTIONS TO BE FILLED UPON DISCHARGE.
--- NOTE | 2018-05-04 16:33 | NUR ---
PT RESTING COMFORTABLY. VSS. RIGHT RADIAL TR BAND IN PLACE. NO BLEEDING/HEMATOMA NOTED. CALL LIGHT WITHIN REACH. DENIES NAUSEA.
--- NOTE | 2018-05-04 17:18 | NUR ---
RESTING COMFORTABLY. RIGHT RADIAL TR BAND IN PLACE. NO BLEEDING/HEMATOMA NOTED. VSS.
--- NOTE | 2018-05-04 17:32 | NUR ---
3cc OF AIR REMOVED FROM TR BAND. NO BLEEDING/HEMATOMA NOTED. PT UP TO RESTROOM AND VOIDED WITHOUT DIFFICULTY. NO OTHER NEEDS AT THIS TIME.
--- NOTE | 2018-05-04 17:45 | NUR ---
4cc OF AIR REMOVED FROM TR BAND. NO BLEEDING/HEMATOMA NOTED. TOLERATING WELL.
--- NOTE | 2018-05-04 18:01 | NUR ---
DISCUSSED DISCHARGE INSTRUCTIONS WITH PT AND PT'S . THEY VOICED UNDERSTANDING. RIGHT RADIAL TR BAND REMOVED AND DRESSING APPLIED. NO BLEEDING/HEMATOMA NOTED. RIGHT AC PIV D/C'D WITH CATH TIP INTACT. PT TOLERATED WELL.
--- NOTE | 2018-05-04 18:15 | NUR ---
PT TAKEN OUT TO VEHICLE BY WHEELCHAIR. NO S/S OF DISTRESS NOTED. ALL BELONGINGS AND PAPERWORK IN HAND. RIGHT WRIST BRACE IN PLACE. PT INSTRUCTED TO KEEP ON FOR 2 HOURS AFTER HE ARRIVES HOME AND THEN CAN REMOVE IT.
== END 2018-05-04 18:15 | disposition home or self-care (01) ==
LOC: D.ER 08:59 → D.CATH 08:59 → EDSTATUS 11:55 → D.CATH 18:15
PROVIDERS: Family Medicine; ATTEND Internal Medicine Interventional Cardiology
DX: I25.119 Atherosclerotic heart disease of native coronary artery with unspecified angina pectoris (principal); I10 Essential (primary) hypertension; E78.5 Hyperlipidemia, unspecified; Z01.812 Encounter for preprocedural laboratory examination

== ENCOUNTER 2018-07-08 03:55 | Inpatient (IN) | payer MEDICARE ==
[~2018-07-08] VITALS: Ht 185.4 cm; Wt 83.5 kg
[2018-07-08] VITALS (9 sets, daily range): BP systolic 104–168; BP diastolic 58–101; BMI 23.8
--- NOTE | ~2018-07-08 | TEE ---
PATIENT:TIMO FLETCHER MEDICAL RECORD: [id number] LOCATION:[place] [address] AGE OF PATIENT: 72 ADMISSION DATE: 07/09/18 SEX: M REFERRING PHYSICIAN: INTERPRETING PHYSICIAN: ALY LUCIO MD TRANSESOPHAGEAL ECHOCARDIOGRAM Date: 07/12/18 CARLOS CHARGE Y INDICATIONS: CABG PREMEDICATIONS: PATIENT'S RESPONSE PROCEDURE DOPPLER MEASUREMENTS: LVIT LA PA RA LVOT RVOT Asc. Ao AV Gradient Peak AV Mean AV Area MV Gradient Peak MV Mean MV Area INTERPRETATION: LVd: 3.6 cm LVs: 2.1 cm Doppler: 2-D: COLOR FLOW DOPPLER NORMAL SALINE STUDY: MISCELLANOUS: DIAGNOSIS: PLAN: Cable Hooker:3 Dr. Dickerson Director Sterile Processing: Antonia MORALES COMMENTS: DATE OF SERVICE: 07/12/2018 PROCEDURE: Transesophageal echo evaluation of valvular structures during bypass surgery. FINDINGS: 1. Left ventricular chamber size is within normal limits. Left ventricular systolic function is normal. Overall ejection fraction estimated at 50%. 2. Left atrium, right atrium, and right ventricular chamber sizes are within TRANSESOPHAGEAL ECHOCARDIOGRAM REPORT [id number] TIMO FLETCHER normal limits. 3. Valvular structures have normal structure and motion. 4. Doppler interrogation reveals trace tricuspid regurgitation. No other valvular insufficiency or stenosis. 5. No evidence of pericardial effusion or left ventricular thrombus. TRANSINT:[id number] Voice Confirmation ID: [id number] DOCUMENT ID: [id number] AYL LUCIO MD CC: [id number] DICTATION DATE: 07/12/18 1716 REGULATORY AUDITOR: 07/13/18 0926 ADM IN [facility] [address] [place] [address]
--- NOTE | ~2018-07-08 | HEMODYNAMI ---
PATIENT:TIMO FLETCHER MEDICAL RECORD: [id number] : 45 LOCATION:[address] ADMISSION DATE: 07/08/18 Generatedon:07/08/201814:39 Patient name: TIMO FLETCHER Patient #: [id number] SSN: : 1945 Date of study: 07/08/2018 Page: Of Hemodynamic Procedure Report Patient Data Patient Demographics Procedure consent was obtained First Name: TIMO Gender: Male Last Name: CHANCE : 1945 Patient #: [id number] Age: 72 year(s) Race: Unknown Additional ID: [id number] Contact details Address: [address] [place] [address] State: [place] City: [place] Zip code: [address] Past Medical History Allergies: No known allergies Admission Admission Data Admission Date: 07/08/2018 Admission Time: 5:06 Admit Source: Emergency department Room #: .2120 Procedure Procedure Types Cath Procedure Diagnostic Procedure LHC LHC w/Coronaries Procedure Description Procedure Date Procedure Date: 07/08/2018 Procedure Start Time: 14:26 Procedure End Time: 14:38 Procedure Staff Name Function Shade Lerner MD Performing Physician Paty Shaffer RT Monitor Owen Whitman RT Scrub Munir Gonzalez RN Nurse Procedure Data Cath Procedure Fluoroscopy Diagnostic fluoroscopy Total fluoroscopy Time: 0.8 time: 0.8 min min Diagnostic fluoroscopy Total fluoroscopy dose: 235 dose: 235 mGy mGy Contrast Material Contrast Material Type Amount (ml) Isovue 300 45 Entry Location Entry Primary Successful Side Size Upsize Upsize Entry Closure Zambrano ccessful Closure Location (Fr) 1 (Fr) 2 (Fr) Remarks Device Remarks Radial Right 6 Fr Mechanical artery Short Compression Estimated blood loss: 5 ml Diagnostic catheters Device Type Used For End Catheter Placement DIAGNOSTIC Grand Chain 110cm 5 LV Angiography Fr catheter ([id number]) DIAGNOSTIC Grand Chain 110cm 5 Left Coronary Fr catheter ([id number]) Angiography DIAGNOSTIC Grand Chain 110cm 5 Right Coronary Fr catheter ([id number]) Angiography Procedure Complications No complications Procedure Medications Medication Administration Route Dosage 0.9% NaCl I.V. 100 ml/hr Oxygen etCO2 Nasal cannula 2 l/min Heparin Flush Bag added to field 2 bags (1000units/500ml NS) Lidocaine 2% added to field 20 Radial Cocktail added to field 1 syringe (Verapamil 2mg/Nitro 400mcg/Heparin 1500units) Versed I.V. 2 mg Fentanyl I.V. 100 mcg Radial Cocktail I.A. 1 syringe (Verapamil 2mg/Nitro 400mcg/Heparin 1500units) Hemodynamics Rest Heart Rate: 62 (bpm) Pressure Samples Time Site Value (mmHg) Purpose Heart Use Rate(bpm) 14:30 LV 129/-5,9 EDP 65 Gradients Valve Time Site Site Mean SEP/DFP Peak To Heart Use 1 2 (mmHg) (sec/min) Peak Rate (mmHg) (bpm) Aortic 14:31 LV AO 64 Snapshots Pre Cath Intra NCS Post Cath Vital Signs Time Heart Resp SPO2 etCO2 NIBP (mmHg) Rhythm Pain Sedation Rate (ipm) (%) (mmHg) Status Level (bpm) 14:17:27 56 17 94 47.7 130/71(100) NSR 0 (11) 10(A) , No pain 14:21:45 58 18 93 0 122/69(99) NSR 0 (11) 10(A) , No pain 14:26:03 58 19 95 0 112/60(99) NSR 0 (11) 9(A) , No pain 14:30:19 75 19 96 41.8 118/55(80) NSR 0 (11) 10(A) , No pain 14:34:35 69 12 93 42.5 117/62(86) NSR 0 (11) 10(A) , No pain Medications Time Medication Route Dose Verified Delivered Reason Notes Effectiveness by by 14:15:29 0.9% NaCl I.V. 100 Munir Munir Per ml/hr Lisa Gonzalez physician RN RN 14:15:41 Oxygen etCO2 2 l/min Munir Munir for low 02 Nasal Lorigan Bernadetteigan sats cannula RN RN 14:15:52 Heparin Flush added 2 bags Munir Munir used for Bag to Lisa Gonzalez procedure (1000units/500ml field RN RN NS) 14:16:03 Lidocaine 2% added 20ml Munir Munir for local to vial Lorigan Lorigan anesthetic field RN RN 14:16:12 Radial Cocktail added 1 Munir Amaral used for (Verapamil to syringe Lorigan Lorigan procedure 2mg/Nitro field RN RN 400mcg/Heparin 1500units) 14:25:17 Versed I.V. 2 mg Munirsharri Amaral for sedation Lisa Gonzalez RN, RN 14:25:27 Fentanyl I.V. 100 mcg Munir Amaral for sedation Lisa Gonzalez RN RN 14:29:57 Radial Cocktail I.A. 1 Munir Laguerre for (Verapamil syringe Lorigan Yann vasodilation 2mg/Nitro RN 400mcg/Heparin 1500units) Procedure Log Time Note 13:54:05 Informed consent obtained and on chart 13:54:09 Admit Source: Emergency department 13:54:24 Munir Gonzalez RN sent for patient. Start room use. 14:05:29 Time tracking: Call back (After hours or weekends) 14:05:33 Plan of Care:Hemodynamics will remain stable., Cardiac rhythm will remain stable., Comfort level will be maintained., Respiratory function will remain adequate., Patient/ family verbilizes understanding of procedure., Procedure tolerated without complication., Recovers from procedure without complications.. 14:05:38 Patient received from PCU to CCL 1 Alert and oriented. Tansferred to table in Supine position. 14:05:40 Warm blankets applied, and cyndi hugger turned on for patient comfort. 14:05:40 Correct patient and procedure confirmed by team. 14:05:41 ECG and BP/O2 sat monitors applied to patient. 14:05:42 Full Disclosure recording started 14:15:29 0.9% NaCl 100 ml/hr I.V. was administered by Munir Gonzalez RN; Per physician; 14:15:41 Oxygen 2 l/min etCO2 Nasal cannula was administered by Munir Gonzalez RN; for low 02 sats; 14:15:52 Heparin Flush Bag (1000units/500ml NS) 2 bags added to field was administered by Munir Gonzalez RN; used for procedure; 14:16:03 Lidocaine 2% 20ml vial added to field was administered by Mnuir Gonzalez RN; for local anesthetic; 14:16:12 Radial Cocktail (Verapamil 2mg/Nitro 400mcg/Heparin 1500units) 1 syringe added to field was administered by Munir Gonzalez RN; used for procedure; 14:16:17 Vital chart was started 14:18:08 Rhythm: sinus rhythm 14:18:10 Baseline sample Acquired. 14:18:15 H&P Date Dictated: 07/08/2018 Within 30 days and on chart.. 14:18:17 Pre-procedure instructions explained to patient. 14:18:17 Pre-op teaching completed and patient verbalized understanding. 14:18:19 Family in patients room. 14:18:20 Patient NPO since Midnight. 14:18:25 Patient allergic to No known allergies 14:18:27 Is the patient allergic to Iodine/contrast media? No. 14:18:29 Is patient on blood thinner?Yes 14:18:31 Patient diabetic? No. 14:18:37 Previous problem with sedation/anesthesia? No ? 14:18:38 Snore? Yes 14:18:39 Sleep apnea? No 14:18:40 Deviated septum? No 14:18:41 Opens mouth fully? Yes 14:18:42 Sticks out tongue? Yes 14:18:44 Airway obstruction? No ? 14:18:45 Dentures? No ? 14:18:54 ACC The patient was administered the following blood thiners within the last 24 hours: ACCPlavix 14:18:59 Pre procedure: right dorsailis pedis pulse 2+ Normal; easily identifiable; not easily obliterated 14:19:02 Modified Tarik's test Ulnar < 7 seconds 14:19:04 Patient pain scale 0/10 ?. 14:19:12 IV patent on arrival in right forearm with 0.9% NaCl at KVO. 14:19:14 Lab results completed and on chart. 14:19:18 Right Radial & Right Groin area was prepped with chlora-prep and draped in sterile fashion 14:19:19 Alarms reviewed by R. N. 14:19:19 Sharps counted by scrub and verified by R.N. 14:19:23 Use device set Radial Dx or PCI 14:19:24 ACIST Syringe (08619) opened to sterile field. 14:19:24 Medline Cath Pack ([id number]) opened to sterile field. 14:19:25 Bag Decanter (2002) opened to sterile field. 14:19:25 DIAGNOSTIC WIRE .035 260cm J wire (806825) opened to sterile field. 14:19: ACIST Hand Control (53298) opened to sterile field. 14:19: ACIST Manifold (59974) opened to sterile field. 14:19:28 MBrace Wrist Support ([id number]) opened to sterile field. 14:19: SHEATH 6FR Slender (69-5931) opened to sterile field. 14:23:27 Zero performed for pressure channel P1 14::34 Final Timeout: patient, procedure, and site verified with staff and physician. All members of the team are in agreement. 14:23:36 Right Radial site verified by team. 14:23:39 Maximum allowable Isovue 300 dose 300ml. Physician notified. (300ml for normal creatinines. For patients with creatinine of 1.7 or higher multiply weight(kg) x 5 divided by creatinine.) 14:23:42 Fire Safety Assessment: A--An alcohol-based skin anteseptic being used preoperatively., C--Open oxygen or nitrous oxide is being used., D--An ESU, laser, or fiber-optic light is being used. 14:23:45 Physical assessment completed. ASA score P 2 - A patient with mild systemic disease as per Shade Lerner MD. 14:23:48 Sedation plan: IV Moderate Sedation Medication:Versed, Fentanyl 14:25:17 Versed 2 mg I.V. was administered by Munir Gonzalez RN; for sedation; 14::27 Fentanyl 100 mcg I.V. was administered by Munir Gonzalez RN; for sedation; 14:26:19 Procedure started. 14::24 Local anesthetic to right radial artery with Lidocaine 2% by Shade Lerner MD.INITIAL ACCESS ONLY 14:29:02 A 6 Fr Short sheath was inserted into the Right Radial artery 14:29:57 Radial Cocktail (Verapamil 2mg/Nitro 400mcg/Heparin 1500units) 1 syringe I.A. was administered by Shade Lerner MD; for vasodilation; 14:30:08 A DIAGNOSTIC Grand Chain 110cm 5 Fr catheter (193840) was advanced over the wire and used for LV Angiography. 14:30:40 LV gram done using JOSE 14:30:41 LV hemodynamics recorded. 14:30:43 Injector settings: Ml/sec: 5, Volume: 15, 14:30:47 EF : 50 % 14:31:48 A DIAGNOSTIC Grand Chain 110cm 5 Fr catheter (618543) was advanced over the wire and used for Left Coronary Angiography. 14:33:16 A DIAGNOSTIC Grand Chain 110cm 5 Fr catheter (316179) was advanced over the wire and used for Right Coronary Angiography. 14:33:21 Catheter removed. 14:33:33 Sheath removed intact; hemostasis achieved with Mechanical Compression to the Right Radial artery. 14:33:40 Procedure ended.(Physican Out) 14:35:12 Fluoroscopy time 00.80 minutes. 14:35:16 Flurop Dose total: 235 14:35:16 Fluoroscopy dose: 235 mGy 14:35:19 Contrast amount:Isovue 300 45ml. 14:35:31 Sharps counted by scrub and verified by R.N. 14:35:34 TR band inflated with 12cc of air. 14:35:35 Insertion/operative site no bleeding no hematoma. 14:35:45 Post right radial artery:stable, clean and dry 14:35:46 Post Procedure Pulses reassessed and unchanged 14:35:49 Post-procedure physical assessment completed. ASA score P 2 - A patient with mild systemic disease as per Shade Lerner MD. 14:35:51 Post procedure rhythm: unchanged. 14:35:53 Estimated blood loss: 5 ml 14:35:54 Post procedure instruction explained to patient.Patient verbalizes understanding. 14:35:55 Patient needs reinforcement of post procedure teaching. 14:36:04 Procedure and supply charges have been captured, reviewed, submitted and are correct. 14:36:06 See physician's report for complete and final results. 14:37:48 Procedure Complication : No complications 14:37:51 Vital chart was stopped 14:37:53 Report given to PCU. 14:38:[address] Finley for CABG. 14:38:25 Patient transfered to PCU with Bed. 14:38:35 Procedure ended. 14:38:35 Full Disclosure recording stopped 14:38:38 End room use (Document Last) Device Usage Item Name Manufacture Quantity Catalog Hospital Part Current Minimal Lot# / Number Charge Number Stock Stock Serial# Code ACIST Acist 1 35893 039293 298026 [id number] 20 The Muse (37800Sajan Medline Medline 1 [id number] 035680 61211 315856 5 Cath Pack ([id number]) Bag Microtek 1 2001S 581657 08396 450382 5 Decanter [employer] () DIAGNOSTIC St Tushar 1 056993 060870 759827 312402 30 WIRE .035 260cm J wire (293779) ACIST Hand Acist 1 92636 384989 933824 777324 5 Control Medical (19087) Systems Inc ACIST Acist 1 89609 794741 648573 876225 5 Manifold Medical (20163) Systems Inc MBrace Advanced 1 140-0250-00 587997 86158 272876 5 Wrist Vascular Support Dynamics ([id number]) SHEATH 6FR Terumo 1 [id number] 729903 236469 785592 5 Slender (97-2790) DIAGNOSTIC Terumo 1 40-9950 075273 117743 177821 5 Grand Chain 110cm 5 Fr catheter (388505) Signature Audit [place] Stage Time Signature Unsigned Intra-Procedure 07/08/2018 Paty 2:39:13 PM Counts RT(R) Signatures Monitor : Paty Signature : Counts RT Date : Time : [address] [address]
[~2018-07-08 03:55] MED LIST changes: +NITROQUICK0.4 MG SL
[2018-07-08] MEDS ORDERED: LIPITOR20 MG PO (04:09)
[2018-07-08] MEDS ORDERED: ISOSORBIDE MONO30 M1 PO (04:10)
[2018-07-08 04:19] LABS: BASOPHILS 0.6 % (0-2); EOSINOPHILS 3.8 % (0-7); HEMATOCRIT 40.5 % (42.0-54.0); HEMOGLOBIN 13.9 g/dL (13.5-17.5); IMMATURE GRANULOCYTES 0.2 % (0-5); LYMPHOCYTES 37.2 % (15-50); MCH 31.1 pg (26.0-34.0); MCHC 34.3 g/dL (31.0-37.0); MCV 90.6 fL (80.0-100.0); MEAN PLATELET VOLUME 10.6 fL (7.4-10.4); NEUTROPHILS 45.2 % (40-80); PLATELET COUNT 177 10x3/uL (130-400); RBC 4.47 10x6/uL (4.20-6.10); RDW 12.4 % (11.5-14.5); WBC 5.2 10x3/uL (4.8-10.8)
[2018-07-08 04:21] LABS: INR 1.03 (0.85-1.17)
[2018-07-08 04:22] LABS: APTT 29.4 SECONDS (22.8-39.4)
--- NOTE | 2018-07-08 04:22 | NUR ---
PT REPORTS TAKING 3 NTG AT HOME WITH RELIEF. PT REPORTS INCREASE IN CP SINCE ARRIVAL TO ED. PT RATES PAIN 6/10 AT THIS TIME.
[2018-07-08 04:27] LABS: ALBUMIN 3.7 g/dL (3.4-5.0); ALKALINE PHOSPHATASE 60 U/L (46-116); ALT (SGPT) 31 U/L (10-68); BILIRUBIN - TOTAL 0.48 mg/dL (0.2-1.3); CALC OSMOLALITY 285 mosm/kg (275-300); CARBON DIOXIDE 26.7 mmol/L (21.0-32.0); CHLORIDE - SERUM 106 mmol/L (98-107); CREATININE - SERUM 0.9 mg/dL (0.6-1.3); GLUCOSE 98 mg/dL (74-106); SODIUM 142 mmol/L (136-145); UREA NITROGEN 22 mg/dL (7-18); eGFR NON AFRICAN AMERICAN 88 mL/min (90-120)
--- NOTE | 2018-07-08 04:31 | NUR ---
PT RATES PAIN 3/10 AFTER 1 NTG. EDP JEFF NOTIFIED.
[2018-07-08 04:37] LABS: CKMB 3.1 U/L (0.0-3.6); CREATINE KINASE 199 UL (21-232); MAGNESIUM - SERUM 2.2 mg/dL (1.8-2.4)
--- NOTE | 2018-07-08 05:06 | NUR ---
PT REPORTS NO PAIN AT THIS TIME AND STATES "I JUST FEEL LIKE I NEED TO BURP". PT PLACED ON 2L O2 VIA NC.
[2018-07-08 08:52] LABS: BASOPHILS 0.4 % (0-2); EOSINOPHILS 3.6 % (0-7); HEMATOCRIT 40.4 % (42.0-54.0); HEMOGLOBIN 13.8 g/dL (13.5-17.5); LYMPHOCYTES 37.7 % (15-50); MCH 31.2 pg (26.0-34.0); MCHC 34.2 g/dL (31.0-37.0); MCV 91.2 fL (80.0-100.0); MEAN PLATELET VOLUME 11.1 fL (7.4-10.4); MONOCYTES 12.6 % (2-11); NEUTROPHILS 45.7 % (40-80); PLATELET COUNT 181 10x3/uL (130-400); RBC 4.43 10x6/uL (4.20-6.10); RDW 12.5 % (11.5-14.5); WBC 5.2 10x3/uL (4.8-10.8)
[2018-07-08 09:12] LABS: CALC OSMOLALITY 286 mosm/kg (275-300); CALCIUM 8.9 mg/dL (8.5-10.1); CARBON DIOXIDE 27.2 mmol/L (21.0-32.0); CHLORIDE - SERUM 106 mmol/L (98-107); CREATININE - SERUM 0.8 mg/dL (0.6-1.3); GLUCOSE 96 mg/dL (74-106); POTASSIUM - SERUM 4.2 mmol/L (3.5-5.1); SODIUM 142 mmol/L (136-145); UREA NITROGEN 23 mg/dL (7-18); eGFR NON AFRICAN AMERICAN > 90 mL/min (90-120)
--- NOTE | 2018-07-08 10:00 | NUR ---
ALERT AND ORIENTED X4. RESTING IN BED. DENIES SOB OR PAIN. CONSENTS FOR SWAGE TENDER SIGNED ON CHART. SINUS ARELIS ON TELEMETRY. DENIES ANY NEEDS AT THIS TIME. CONTINUE PLAN OF CARE AND SAFETY PRECAUTIONS.
--- NOTE | 2018-07-08 14:53 | NUR ---
ARRIVE BACK TO ROOM VIA BED FROM COMPUTING SYSTEMS MECHANIC. SEDATED, AROUSES TO VOICE. SPOUSE AT BEDSIDE. BP-136/80, HR-67 SINUS RHYTHM, R-16, O2 SAT-97% 1L NC. TR BAND CLEAN DRY INTACT. FREE FROM BLEEDING. FREE FROM HEMATOMA. PULSE PALPABLE BILATERALLY. CONTINUE PLAN OF CARE AND SAFETY PRECAUTIONS.
--- NOTE | 2018-07-08 16:00 | NUR ---
ALERT AND ORIENTED X4. SITTING UP IN BED. BEGIN DEFLATING TR BAND. DEFLATE 2mL AIR OUT OF BULB NOT TOLERATED. BEGINS BLEEDING. INSERT 1ML OF AIR. NO BLEEDING OBSERVED. CONTINUE PLAN OF CARE AND SAFETY PRECAUTIONS.
--- NOTE | 2018-07-08 18:21 | NUR ---
ALERT AND ORIENTED X4. TR BAND DEFLATED 2mL OF AIR. BEGINS BLEEDING. INFLATE TR BAND 1ML OF AIR. REMAINS FREE FROM BLEEDING WITH 1ML AIR DEFLATED. REMAINS FREE FROM HEMATOMA. DENIES ANY NEEDS AT THIS TIME. CONTINUE PLAN OF CARE AND SAFETY PRECAUTIONS. SINUS RHYTHM ON TELEMETRY.
--- NOTE | 2018-07-08 22:14 | NUR ---
INITIAL ROUNDS COMPLETED AT 1910 HRS. PT DENIED ANY DISCOMFORT. TR BAND IN USE TO R WRIST WITH 2CC REMOVED. BLEEDING NOTED TO GAUZE AND MARKED.. AT BEDSIDE. ASSESSMENT COMPLETED AT 1944 HRS. VSS. SB PER CM HR 54. ALERT AND ORIENTED TO PERSON, PLACE AND TIME. GANT. IV TO RFA SL. LUNGS ESSENTIALLY CTA. ADDITIONAL CC OF AIR REMOVED AT THAT TIME. AIR REMOVED SLOWLY FROM TR BAND OVER LAST 2 HRS WITH 2CC REMAINING. WILL CONTINUE TO MONITOR. SR UP X2, CALL LIGHT WITHIN REACH.
--- NOTE | 2018-07-08 22:39 | NUR ---
TR BAND OFF AT THIS TIME. NO BLEEDING NOTED. 2X2 COVERED WITH AN OPSITE PLACED OVER INCISIN SITE. WRIST SPLINT PLACED BACK ON PT. INFORMED TO CALL URSZULA FOR ANY BLEEDING, SWELLING. BRUISING OR IF R HAND BECOMES COLD/NUMB. PT STATED UNDERSTANDING. SR UP X2,CALL LIGHT WITHIN REACH.
--- NOTE | 2018-07-08 23:46 | NUR ---
R WRIST CLEAN, DRY AND INTACT. PALPABLE RADIAL PULSE. SR UP X2, CALL LIGHT WITHIN REACH.
[2018-07-09] VITALS (11 sets, daily range): BP systolic 104–133; BP diastolic 55–79; Ht 185.4 cm; Wt 83.5 kg
--- NOTE | 2018-07-09 02:09 | NUR ---
PT RESTING WITH EYES CLOSED. RESP EVEN AND REGULAR. SR UP X2, CALL LIGHT WITHIN REACH.
--- NOTE | 2018-07-09 04:05 | NUR ---
NO CHANGES TO R WRIST NOTED. PT DENIES ANY DISCOMFORT. SR UP X2, CALL LIGHT WITHIN REACH.
[2018-07-09 05:13] LABS: BASOPHILS 0.5 % (0-2); EOSINOPHILS 2.5 % (0-7); HEMATOCRIT 41.5 % (42.0-54.0); IMMATURE GRANULOCYTES 0.2 % (0-5); MCHC 33.7 g/dL (31.0-37.0); MCV 91.8 fL (80.0-100.0); MEAN PLATELET VOLUME 10.8 fL (7.4-10.4); MONOCYTES 11.9 % (2-11); NEUTROPHILS 59.9 % (40-80); PLATELET COUNT 168 10x3/uL (130-400); RBC 4.52 10x6/uL (4.20-6.10); RDW 12.7 % (11.5-14.5); WBC 5.7 10x3/uL (4.8-10.8)
[2018-07-09 05:31] LABS: ALBUMIN 3.2 g/dL (3.4-5.0); ALKALINE PHOSPHATASE 57 U/L (46-116); ALT (SGPT) 28 U/L (10-68); BILIRUBIN - TOTAL 0.33 mg/dL (0.2-1.3); CALC OSMOLALITY 282 mosm/kg (275-300); CALCIUM 8.4 mg/dL (8.5-10.1); CARBON DIOXIDE 28.6 mmol/L (21.0-32.0); CHLORIDE - SERUM 107 mmol/L (98-107); CREATININE - SERUM 0.9 mg/dL (0.6-1.3); GLUCOSE 89 mg/dL (74-106); MAGNESIUM - SERUM 2.1 mg/dL (1.8-2.4); POTASSIUM - SERUM 4.1 mmol/L (3.5-5.1); PROTEIN - SERUM 6.5 g/dL (6.4-8.2); SODIUM 142 mmol/L (136-145); eGFR NON AFRICAN AMERICAN 88 mL/min (90-120)
[2018-07-09 05:35] LABS: UREA NITROGEN 16 mg/dL (7-18)
--- NOTE | 2018-07-09 06:16 | NUR ---
VSS THROUGHOUT NIGHT SB PER CM. PT DENIED ANY DISCOMFORT. NO CHANGES TO R WRIST NOTED. NEEDS MET; WILL CONTINUE TO MONITOR.
--- NOTE | 2018-07-09 07:20 | NUR ---
RECIEVED REPORT FROM BALTAZAR CORRAL. ALERT AND ORIENTED X4. RESTING IN BED. SINUS ARELIS 58 ON TELEMETRY. DENIES ANY NEEDS AT THIS TIME. CONTINUE PLAN OF CARE AND SAFETY PRECAUTIONS.
--- NOTE | 2018-07-09 08:15 | NUR ---
REPORTS CHEST PAIN. NITRO ADMINISTERED ORDERED. REPORTS RELIEF WITH NITRO.
--- NOTE | 2018-07-09 10:07 | CN ---
PATIENT NAME:TIMO FLETCHER MEDICAL RECORD: [id number] : 45 LOCATION:[facility] D.2120 ADMIT DATE: 07/08/18 ACCOUNT: [id number] CONSULTING PHYSICIAN: ALTAGRACIA WEST MD REFERRING PHYSICIAN: BERENICE MICHAEL MD DATE OF CONSULTATION: 07/08/2018 HISTORY OF PRESENT ILLNESS: A 72-year-old gentleman with known history of coronary artery disease, status post multivessel intervention. Basically, he has had intermittent chest pain since last intervention. He also had rest symptomology yesterday with chest tightness and pressure with exertion that progressed to rest pain, relieved with nitroglycerin. Transferred to the room and began to have more symptomology. Still having ongoing symptoms despite being placed on nitro patch. We are asked to see him concerning his cardiovascular status. PAST MEDICAL HISTORY: Includes; 1. History of hypertension. 2. Hyperlipidemia. 3. Dyslipidemia. ALLERGIES: None known. MEDICATIONS: Hydrochlorothiazide 12.5 daily, aspirin 81 daily, quinapril 20 daily, metoprolol 75 daily, Imdur 30 daily, atorvastatin 20 daily, and Plavix 75 daily. SOCIAL HISTORY: Nonsmoker and nondrinker. He does try to stay active. REVIEW OF SYSTEMS: The patient reports easy bruising but reports no swollen glands. The patient reports no fever, no night sweats, no significant weight gain, no significant weight loss. No significant exercise tolerance. The patient reports no dry eyes, no irritation, no vision change. Patient reports no difficulty hearing and no ear pain. Patient reports no frequent nose bleeds or nose and sinus problems. Patient reports on arm pain on exertion. No shortness of breath while lying down. No history of heart murmur. Patient reports no cough, no wheezing or coughing up blood. Patient reports no abdominal pain, no vomiting. Normal appetite. No diarrhea and not vomiting blood. No nausea and no constipation. Patient reports no incontinence. No difficulty urinating. No hematuria. No increased frequency. Patient reports no muscle aches. No weakness, no arthralgias, no back pain. No swelling of the extremities. Patient reports no abnormal mole, no jaundice, no rashes. Reports no loss of consciousness. No weakness and no numbness. No seizures, dizziness, or headaches. The patient reports no depression, no sleep disturbance, feeling safe in a relationship and no alcohol abuse. Patient reports on fatigue. Reports no runny nose or sinus pressure. No itching, no hives, and no frequent sneezing. PHYSICAL EXAMINATION: GENERAL: Pleasant gentleman, in no acute distress. VITAL SIGNS: Blood pressure 113/67. Pulse 68 and regular. HEENT: Normocephalic and atraumatic. NECK: No JVD or bruit. HEART: Regular with II/ systolic ejection murmur. LUNGS: Good air excursion. CONSULT REPORT [id number] TIMO FLETCHER ABDOMEN: Soft and nontender. EXTREMITIES: Pulse 2+. No edema. NEUROLOGIC: Grossly intact. DIAGNOSTIC DATA: ECG without acute change. IMPRESSION: Acute coronary syndrome. PLAN: Plan is for angiography, intervention based on above. TRANSINT:[id number] Voice Confirmation ID: [id number] DOCUMENT ID: [id number] ALTAGRACIA WEST MD at 1007 CC: [id number] DICTATION DATE: 07/08/18 0858 MS SQL DBA: 07/08/18 1622 ADM IN [facility] [id number] [place] [address]
--- NOTE | 2018-07-09 10:07 | OP ---
PATIENT NAME: TIMO FLETCHER MEDICAL RECORD: [id number] :45 LOCATION:D.M2 D.0 ADMISSION DATE:07/08/18 SURGEON: ALTAGRACIA WEST MD DATE OF OPERATION: 07/08/2018 PROCEDURE: Left heart catheterization, selective coronary angiography, right radial approach. CATHETERS: Radial sheath, Wooster catheter. The procedure was well tolerated. The patient was returned to the celeste. Sheath was removed. TR band was placed. FINDINGS: Left ventriculography in 30-degree JOSE view: Normal wall motion and normal systolic function. CORONARY ANATOMY: LEFT MAIN: Left main is free of disease. LAD: It has severe diffuse in-stent restenosis with good target distally. CIRCUMFLEX: Circumflex again has severe diffuse in-stent restenosis. This extends all the way to the ostium of circumflex, making high risk for intervention. RIGHT CORONARY ARTERY: Dominant artery, gives rise to PDA, free of disease. IMPRESSION: Given time frame of the restenosis and location, I suspect he would be best served by coronary artery bypass grafting. Dr. Finley is consulted for this purpose. TRANSINT:[id number] Voice Confirmation ID: [id number] DOCUMENT ID: [id number] ALTAGRACIA WEST MD at 1007 CC: [id number] DICTATION DATE: 07/08/18 1446 CONTROLLER OPERATIONS AND HR MANAGER: 07/08/18 192 ADM IN [facility] [address] [place] [address]
[2018-07-09 13:37] LABS: PHOSPHOROUS 3.6 mg/dL (2.5-4.9); T4 THYROXIN - FREE 1.13 ng/dL (0.76-1.46); THYROID STIMULATING HORMONE 2.27 uIU/mL (0.36-3.74)
--- NOTE | 2018-07-09 14:22 | NUR ---
ALERT AND ORIENTED X4. TAKEN TO CT VIA WHEELCHAIR. REMAINS FREE FROM INJURY.
[2018-07-09 14:37] LABS: APTT 29.7 SECONDS (22.8-39.4); INR 1.07 (0.85-1.17); PROTIME 13.4 SECONDS (11.6-15.0)
[2018-07-09 14:57] LABS: PLT FUNCT.(P2Y12) PLAVIX 114 PRU (194-418)
--- NOTE | 2018-07-09 15:44 | NUR ---
ALERT AND ORIENTED X4. SITTING UP IN BED. EKG COMPLETE AND PLACED ON CHART. MED REC PRINTED ON FRONT OF CHART. WT AND HT ON FRONT OF CHART. BP LT AND RT ARM COMPLETE ON FRONT OF CHART. SINUS RHYTHM ON TELEMETRY 66. OBTAIN STANDING WEIGHT ON SCALE 'ILIA.' DENIES ANY NEEDS AT THIS TIME. CONTINUE PLAN OF CARE AND SAFETY PRECAUTIONS.
[2018-07-09 16:48] LABS: APPEARANCE CLEAR (CLEAR); BILIRUBIN NEGATIVE (NEGATIVE); COLOR YELLOW (YELLOW); GLUCOSE NEGATIVE (NEGATIVE); KETONE NEGATIVE (NEGATIVE); NITRITE NEGATIVE (NEGATIVE); PROTEIN NEGATIVE (NEGATIVE); SPECIFIC GRAVITY 1.015 (1.005-1.020); UROBILINOGEN NORMAL (NORMAL)
--- NOTE | 2018-07-09 18:56 | NUR ---
SECOND ATTEMPT TO CALL REPORT TO [facility] FOR TRANSFER. NURSE REFUSES TO ACCEPT REPORT.
--- NOTE | 2018-07-09 19:46 | NUR ---
CALLED DR LOUIS ABOUT NOTE MENTIONING HEPARIN AND NITRO GTT. NO ORDER FOR HEPARIN. SAYS PT STILL ANTICOAGULATED FROM PLAVIX. HOLD OFF HEPARIN. ASKED PT NITRO TO BE STARTED AT 1.5CC/HR. SURGERY WAS SCHEDULED FOR 07/10, BUT HAS BEEN RESCHEDULED FOR 07/11.
--- NOTE | 2018-07-09 20:30 | NUR ---
PT RECEIVED TO UNIT AT 1940 FROM [facility] VIA WHEELCHAIR WITH HOSPITAL STAFF. PT TRANSFERRED SELF TO UNIT BED AND PLACED ON MONITOR. PT TOLERATED WELL. PT ALERT AND ORIENTED. NO COMPLAINTS OF PAIN/DISCOMFORT. IV NITRO STARTED PER TELEPHONE ORDER AT 1.5ML/HR. PT WITHOUT NEEDS OR CONCERNS AT THIS TIME. CALL LIGHT IN REACH. WILL CONTINUE TO OBSERVE.
--- NOTE | 2018-07-09 21:11 | NUR ---
PT ACCIDENTLY PUSHES CALL LIGHT. NO NEEDS MADE KNOWN. CALL LIGHT IN REACH. NO S/S OF DISTRESS. VSS. WILL CONTINUE TO OBSERVE.
--- NOTE | 2018-07-09 22:41 | NUR ---
PT UP TO BATHROOM WITHOUT DIFFICULTY. JOSSELINE LEWIS AND NELSY APPLIED. LIGHTS TURNED OUT PER REQUEST. NO OTHER NEEDS NOTED. CALL LIGHT IN REACH. WILL CONTINUE TO OBSERVE.
[2018-07-10] VITALS (20 sets, daily range): BP systolic 103–135; BP diastolic 54–82
--- NOTE | 2018-07-10 01:58 | NUR ---
PT WITH EYES CLOSED AND CHEST RISING. VSS. NO S/S OF DISTRESS. CALL LIGHT IN REACH. WILL CONTINUE TO OBSERVE.
--- NOTE | 2018-07-10 03:24 | NUR ---
PT RESTING WITH EYES CLOSED AND CHEST RISING. NO S/S OF DISTRESS. BRADYCARDIA NOTED WHILE PT SLEEPING AT TIMES. WILL CONTINUE TO OBSERVE.
[2018-07-10 04:36] LABS: BASOPHILS 0.3 % (0-2); EOSINOPHILS 2.3 % (0-7); HEMATOCRIT 39.4 % (42.0-54.0); HEMOGLOBIN 13.2 g/dL (13.5-17.5); LYMPHOCYTES 22.8 % (15-50); MCH 30.6 pg (26.0-34.0); MCHC 33.5 g/dL (31.0-37.0); MCV 91.4 fL (80.0-100.0); MEAN PLATELET VOLUME 10.1 fL (7.4-10.4); MONOCYTES 13.8 % (2-11); NEUTROPHILS 60.8 % (40-80); PLATELET COUNT 161 10x3/uL (130-400); RBC 4.31 10x6/uL (4.20-6.10); RDW 12.6 % (11.5-14.5)
[2018-07-10 05:08] LABS: ALBUMIN 3.3 g/dL (3.4-5.0); ALKALINE PHOSPHATASE 53 U/L (46-116); ALT (SGPT) 25 U/L (10-68); BILIRUBIN - TOTAL 0.39 mg/dL (0.2-1.3); CALC OSMOLALITY 281 mosm/kg (275-300); CALCIUM 8.5 mg/dL (8.5-10.1); CARBON DIOXIDE 27.8 mmol/L (21.0-32.0); CHLORIDE - SERUM 105 mmol/L (98-107); GLUCOSE 99 mg/dL (74-106); MAGNESIUM - SERUM 2.1 mg/dL (1.8-2.4); POTASSIUM - SERUM 3.8 mmol/L (3.5-5.1); PROTEIN - SERUM 6.4 g/dL (6.4-8.2); SODIUM 141 mmol/L (136-145); UREA NITROGEN 16 mg/dL (7-18); eGFR NON AFRICAN AMERICAN 78 mL/min (90-120)
--- NOTE | 2018-07-10 06:45 | NUR ---
PT UP TO BATHROOM FOR URINATION. SUPPLIES FOR BATH GIVEN AND PT INDEPENDENT FOR BATH. COMPLETE LINEN CHANGE AND NEW GOWN PROVIDED. PT BACK IN BED. PT TOLERATED WELL. NO NEEDS OR CONCERNS. RECEIVED SCHEDULED MEDICATION PER MAR WITHOUT DIFFICULTY. CALL LIGHT IN REACH. WILL CONTINUE TO OBSERVE.
--- NOTE | 2018-07-10 07:45 | NUR ---
PT RESTING COMFORTABLY IN CHAIR EATING BREAKFAST. DENIES CHEST PAIN AT THIS TIME. ON ROOM AIR. HAS R-FOREAMR PIV WITH NITRO INFUSING AT 1.5ML. NO FEVER NOTED. SHIFT ASSESSMENT COMPLETED. WILL CONTINUE TO MONITOR.
[2018-07-10 09:04] LABS: APTT 29.1 SECONDS (22.8-39.4)
[2018-07-10 09:16] LABS: INR 1.01 (0.85-1.17); PROTIME 13.2 SECONDS (11.6-15.0)
--- NOTE | 2018-07-10 10:00 | NUR ---
L-FOREARM PIV INSERTED BY DENISE LEDESMA.
--- NOTE | 2018-07-10 10:34 | NUR ---
HEPARING DRIP INITIATED AT 800UNITS/HR PER PROTOCOL. APPT WAS 28.1.
--- NOTE | 2018-07-10 18:22 | NUR ---
HEPARING DRIP INCREASED TO 900 UNITS/HR PER PROTOCOL.
--- NOTE | 2018-07-10 20:00 | NUR ---
PT UP TO RESTROOM INDEPENDENTLY. STEADY GAIT. DENIES CP OR SOB. DENIES NEEDS
[2018-07-11] VITALS (16 sets, daily range): BP systolic 108–137; BP diastolic 59–82
[2018-07-11 00:37] LABS: HEMATOCRIT 41.2 % (42.0-54.0); HEMOGLOBIN 14.1 g/dL (13.5-17.5); MCH 31.2 pg (26.0-34.0); MCHC 34.2 g/dL (31.0-37.0); MCV 91.2 fL (80.0-100.0); MEAN PLATELET VOLUME 10.1 fL (7.4-10.4); RBC 4.52 10x6/uL (4.20-6.10); RDW 12.8 % (11.5-14.5); WBC 6.2 10x3/uL (4.8-10.8)
--- NOTE | 2018-07-11 04:30 | NUR ---
DENIES HAVING ANY CP. VSS. CONTINUING TO MONITOR.
[2018-07-11 04:42] LABS: BASOPHILS 0.3 % (0-2); HEMATOCRIT 41.9 % (42.0-54.0); HEMOGLOBIN 14.4 g/dL (13.5-17.5); IMMATURE GRANULOCYTES 0.2 % (0-5); LYMPHOCYTES 26.3 % (15-50); MCH 31.4 pg (26.0-34.0); MCHC 34.4 g/dL (31.0-37.0); MCV 91.3 fL (80.0-100.0); MONOCYTES 11.9 % (2-11); NEUTROPHILS 59.3 % (40-80); PLATELET COUNT 187 10x3/uL (130-400); RBC 4.59 10x6/uL (4.20-6.10); RDW 12.8 % (11.5-14.5); WBC 5.9 10x3/uL (4.8-10.8)
[2018-07-11 04:53] LABS: ALBUMIN 3.5 g/dL (3.4-5.0); ALKALINE PHOSPHATASE 58 U/L (46-116); ALT (SGPT) 24 U/L (10-68); BILIRUBIN - TOTAL 0.48 mg/dL (0.2-1.3); CALC OSMOLALITY 279 mosm/kg (275-300); CALCIUM 8.9 mg/dL (8.5-10.1); CARBON DIOXIDE 29.4 mmol/L (21.0-32.0); CHLORIDE - SERUM 103 mmol/L (98-107); CREATININE - SERUM 0.8 mg/dL (0.6-1.3); GLUCOSE 94 mg/dL (74-106); POTASSIUM - SERUM 3.9 mmol/L (3.5-5.1); PROTEIN - SERUM 6.9 g/dL (6.4-8.2); SODIUM 140 mmol/L (136-145); UREA NITROGEN 16 mg/dL (7-18); eGFR NON AFRICAN AMERICAN > 90 mL/min (90-120)
--- NOTE | 2018-07-11 08:25 | NUR ---
Nutrition follow up: Reviewed chart and spoke with nursing-pt is in the bathroom now AHA diet with 100% intake of all meals yesterday CABG tomorrow RD following
--- NOTE | 2018-07-11 12:10 | NUR ---
PT DENIES CHEST PAIN. UP AD RAMU. PTT AT 10AM AND REVIEWED RESULTS. HEP GTT INCREASED BY 100U/HR PER SS ORDERS. CONCENT FORM SIGNED FOR SURGERY TOMORROW.
--- NOTE | 2018-07-11 17:50 | NUR ---
PTT RESULTS REVIEWED. SS USED.
[2018-07-12] VITALS (53 sets, daily range): BP systolic 90–142; BP diastolic 48–80
[2018-07-12 00:12] LABS: HEMATOCRIT 42.4 % (42.0-54.0); HEMOGLOBIN 14.3 g/dL (13.5-17.5); MCH 30.9 pg (26.0-34.0); MCHC 33.7 g/dL (31.0-37.0); MCV 91.6 fL (80.0-100.0); MEAN PLATELET VOLUME 10.8 fL (7.4-10.4); RBC 4.63 10x6/uL (4.20-6.10); RDW 12.8 % (11.5-14.5); WBC 6.7 10x3/uL (4.8-10.8)
[2018-07-12 04:08] LABS: BASOPHILS 0.3 % (0-2); EOSINOPHILS 2.3 % (0-7); HEMATOCRIT 41.5 % (42.0-54.0); IMMATURE GRANULOCYTES 0.2 % (0-5); LYMPHOCYTES 28.5 % (15-50); MCH 30.7 pg (26.0-34.0); MCHC 33.7 g/dL (31.0-37.0); MEAN PLATELET VOLUME 10.4 fL (7.4-10.4); MONOCYTES 12.5 % (2-11); NEUTROPHILS 56.2 % (40-80); PLATELET COUNT 175 10x3/uL (130-400); RBC 4.56 10x6/uL (4.20-6.10); RDW 12.7 % (11.5-14.5); WBC 6.4 10x3/uL (4.8-10.8)
[2018-07-12 04:34] LABS: ALBUMIN 3.5 g/dL (3.4-5.0); ALKALINE PHOSPHATASE 57 U/L (46-116); ALT (SGPT) 25 U/L (10-68); BILIRUBIN - TOTAL 0.46 mg/dL (0.2-1.3); CALC OSMOLALITY 280 mosm/kg (275-300); CARBON DIOXIDE 26.4 mmol/L (21.0-32.0); CHLORIDE - SERUM 103 mmol/L (98-107); CREATININE - SERUM 0.8 mg/dL (0.6-1.3); GLUCOSE 100 mg/dL (74-106); POTASSIUM - SERUM 3.4 mmol/L (3.5-5.1); SODIUM 140 mmol/L (136-145); UREA NITROGEN 17 mg/dL (7-18); eGFR NON AFRICAN AMERICAN > 90 mL/min (90-120)
--- NOTE | 2018-07-12 06:00 | NUR ---
PREOP MEDS GIVEN PER ORDER AFTER TALKING WITH DR YIP ON THE PHONE. PT VOIDED IN RESTROOM. AT BEDSIDE.
--- NOTE | 2018-07-12 13:30 | NUR ---
PT ARRIVED TO UNIT AT 1325 FROM OR. ETT 8.0 24 AT THE LIP MIDLINE. SIMV R-14, TV 600, FIO2 50%, PS 10, PEEP 5. MIDSTERNAL DRESSING IN PLACE. CT X 3 (2Y'D) TOGETHER, L-EAN DRAIN, TPM WIRES CONNECTED, DRESSING CDI. CHEST TUBES CONNECTED TO 20CM SUCTION. RIJ WITH PLASMOLYTE ATN 100ML/HR, AMIODARONE AT 33.3ML/HR. GMÓEZ IN PLACE WITH YELLOW URINE NOTED. R-RADIAL ALMAZ SECURED WITH WRIST PROTECTOR. PIV ON L AND R FOREARM S.L. RIGHT LEG HARVEST SITES WRAPPED IN COBAN DRESSING FROM GROIN TO ANKLE. JOSSELINE AND SCD ON LEFT LEG. CONNECTED TO MEDIA TECHNICIAN. SAFETY MEASURES IN PLACE. WILL CONTINUE TO MONITOR.
--- NOTE | 2018-07-12 14:12 | NUR ---
BP 141/79. NITRO INITIATED AT 5ML/HR PER ORDERS.
--- NOTE | 2018-07-12 15:20 | NUR ---
PT NOT TOLERATING NITRO AT 5ML/HR. DECREASED NITRO TO 3.5ML/HR AT THIS TIME. WILL COTNINUE TO MONITOR.
--- NOTE | 2018-07-12 15:35 | NUR ---
NITRO DECREASED TO 2ML/HR AT THIS TIME. WILL CONTINUE TO MONITOR.
--- NOTE | 2018-07-12 16:35 | NUR ---
DR. LOUIS NOTIFIED OF BLOOD GAS RESULTS. OK TO EXTUBATE. NO BICARB GIVEN PER DR. LOUIS.
--- NOTE | 2018-07-12 16:37 | NUR ---
PT EXTUBATED AT THIS TIME. PLACED ON 3L VIA NC.
--- NOTE | 2018-07-12 16:50 | NUR ---
HR [address] LOUIS NOTIFIED.
--- NOTE | 2018-07-12 16:54 | NUR ---
BLOOD GLUCOSE 201 AT THIS TIME. WILL RECHECK IN 15MINUTES PER ORDERS.
--- NOTE | 2018-07-12 17:09 | MORECARE ---
CASE MANAGEMENT DISCHARGE SUMMARY PATIENT: TIMO FLETCHER UNIT: [id number] ADM DATE: 07/09/18 AGE: 72 : 45 SEX: M ROOM/BED: D[facility] AUTHOR: TALIA,DOC PHYSICIAN: REFERRING PHYSICIAN: BERENICE MICHAEL MD DATE OF SERVICE: 07/12/18 Discharge Plan Patient Name: TIMO FLETCHER Facility: [facility]:[place] : 1945 Planned Disposition: Home Anticipated Discharge Date: Discharge Date: Expected LOS: Initial Reviewer: [email or web address] Initial Review Date: 07/08/2018 Generated: 07/12/18 6:09 pm Comments DCP- Discharge Planning Updated by [email or web address]: Maria Isabel Mcintosh on 07/12/18 4:[address] LATE ENTRY 07/11/18 @ 1730 Patient Name: TIMO FLETCHER Admission Status: ER Accout number: [id number] Admission Date: 07-09-2018 : 1945 Admission Diagnosis:ATHSCL HEART DISEASE OF [place] CORONARY ARTERY W/O ANG Attending: DAVDI MICHAEL Current LOS: 3 Anticipated DC Date: Planned Disposition: Home Primary Insurance: [employer] Discharge Planning Comments: CM met with patient and spouse (Terrence) at bedside after explaining CM role and obtaining verbal consent. Patient lives at home with his Terrence and plans to return there upon discharge. Patient feels this would be a safe discharge. CM discussed availability / needs of home health and medical equipment. Patient denies any discharge needs at this time. Patient may need walk test if 02 needed at d/c. Patient states he will have his drive him home upon discharge. CM will continue to follow and assist as needed with discharge planning / needs. Machine Welder: Maria Isabel Mcintosh DCPIA - Discharge Planning Initial Assessment Updated by [email or web address]: Maria Isabel Mcintosh on 07/12/18 5:04 pm * Is the patient Alert and Oriented? Yes * How many steps to enter\exit or inside your home? * PCP [facility] * Pharmacy [facility] * Preadmission Environment Home with Family * ADLs Independent * Equipment None * List name and contact numbers for known caregivers / representatives who currently or will assist patient after discharge: TERRENCE FLETCHER- SPOUSE- [phone] * Verbal permission to speak to the caregivers and representatives has been obtained from the patient. Yes * Community resources currently utilized None * Additional services required to return to the preadmission environment? No * Can the patient safely return to the preadmission environment? Yes * Has this patient been hospitalized within the prior 30 days at any hospital? No Patient Name: TIMO FLETCHER Page 31118 at 1709 All edits/amendments must be made on the electronic document DICTATION DATE: 07/12/181708 FORM WORKER: JESSICA 07/12/181708 RPT#: [id number] DC DATE: STATUS: ADM IN [facility] [address] [place] [address] END OF REPORT
--- NOTE | 2018-07-12 17:11 | NUR ---
BLOOD GLUCOSE 187. NO ACTION NEEDED PER ORDERS AND PROTOCOL.
--- NOTE | 2018-07-12 18:31 | NUR ---
BLOOD GLUCOSE 215 ON SECOND RECHECK. 2UNIT INSULIN BOLUS GIVEN PER PROTOCOL AND INITIATED DRIP AT 1UNIT/HR. PT DANGLED ON SIDE OF BED FOR ABOUT 10MINUTES. REPOSTIONED FOR COMFORT. ICE PACK PLACED ON LEFT UPPER BACK PER PT REQUEST. PULLS BETWEEN 500-1000 ON INCENTIVE SPIROMETER.
--- NOTE | 2018-07-12 18:57 | NUR ---
BLOOD GLUCOSE WAS 200. DRIP CONTINUES AT 1UNIT/HR.
--- NOTE | 2018-07-12 20:00 | NUR ---
ASSESSMENT COMPLETE. STATES THAT PAIN IS CONTROLLED WITH PAIN MEDS. ENCOURAGED TO ASK FOR MEDS WHEN HE IS HURTING. AT BEDSIDE.
--- NOTE | 2018-07-12 21:30 | NUR ---
AWAKE AND ALERT. GIVEN WATER AND PAIN MEDS PER REQUEST. ADJUSTED FOR COMFORT
--- NOTE | 2018-07-12 23:00 | NUR ---
FSBS REMAIN IN TARGET RANGE. SR PER CM. REPOSITIONED FOR COMFORT
[2018-07-13] VITALS (50 sets, daily range): BP systolic 103–144; BP diastolic 43–85
[2018-07-13 00:25] LABS: HEMATOCRIT 35.9 % (42.0-54.0); HEMOGLOBIN 11.9 g/dL (13.5-17.5); MCH 30.4 pg (26.0-34.0); MCHC 33.1 g/dL (31.0-37.0); MCV 91.6 fL (80.0-100.0); MEAN PLATELET VOLUME 10.6 fL (7.4-10.4); RBC 3.92 10x6/uL (4.20-6.10); RDW 12.9 % (11.5-14.5)
[2018-07-13 00:31] LABS: WBC 16.8 10x3/uL (4.8-10.8)
--- NOTE | 2018-07-13 01:30 | NUR ---
REPOSITIONED FOR COMFORT. DEMIES NEEDS
--- NOTE | 2018-07-13 03:30 | NUR ---
NO CHANGE IN ASSESSMENT.
--- NOTE | 2018-07-13 06:00 | NUR ---
BATHED AND GOWN CHANGED. ASSISTED UP TO BEDSIDE CHAIR. TOLERATED WELL
[2018-07-13 06:30] LABS: BASOPHILS 0 % (0-2); EOSINOPHILS 0 % (0-7); HEMATOCRIT 33.7 % (42.0-54.0); HEMOGLOBIN 11.3 g/dL (13.5-17.5); IMMATURE GRANULOCYTES 0.4 % (0-5); LYMPHOCYTES 4.1 % (15-50); MCH 30.6 pg (26.0-34.0); MCHC 33.5 g/dL (31.0-37.0); MCV 91.3 fL (80.0-100.0); MONOCYTES 13.6 % (2-11); NEUTROPHILS 81.9 % (40-80); PLATELET COUNT 190 10x3/uL (130-400); RBC 3.69 10x6/uL (4.20-6.10); RDW 12.9 % (11.5-14.5)
[2018-07-13 06:46] LABS: ALBUMIN 2.8 g/dL (3.4-5.0); ALKALINE PHOSPHATASE 39 U/L (46-116); ALT (SGPT) 21 U/L (10-68); CALC OSMOLALITY 282 mosm/kg (275-300); CALCIUM 7.7 mg/dL (8.5-10.1); CARBON DIOXIDE 29.1 mmol/L (21.0-32.0); CHLORIDE - SERUM 105 mmol/L (98-107); CREATININE - SERUM 0.9 mg/dL (0.6-1.3); GLUCOSE 153 mg/dL (74-106); MAGNESIUM - SERUM 2.1 mg/dL (1.8-2.4); POTASSIUM - SERUM 3.8 mmol/L (3.5-5.1); PROTEIN - SERUM 5.5 g/dL (6.4-8.2); SODIUM 140 mmol/L (136-145); UREA NITROGEN 14 mg/dL (7-18); eGFR NON AFRICAN AMERICAN 88 mL/min (90-120)
--- NOTE | 2018-07-13 07:45 | OP ---
PATIENT NAME: TIMO FLETCHER MEDICAL RECORD: [id number] :45 LOCATION:D.[facility] D.CV04 ADMISSION DATE:07/09/18 SURGEON: TRAVIS LOUIS MD DATE OF OPERATION: 07/12/2018 SURGEON: Travis Louis MD TRAVELING PHLEBOTOMIST: Jordan Rodriguez OPERATIONS PERFORMED: 1. Coronary artery bypass graft times 3 (left internal mammary artery to LAD, reverse saphenous vein graft from aorta to first diagonal and aorta to obtuse marginal). 2. Endoscopic saphenous vein harvest. PREOPERATIVE DIAGNOSIS: Coronary artery disease with severe 2-vessel in-stent restenosis. POSTOPERATIVE DIAGNOSIS: Coronary artery disease with severe 2-vessel in-stent restenosis. ANESTHESIA: General endotracheal anesthesia. ESTIMATED BLOOD LOSS: Total cardiopulmonary bypass with Cell Saver retransfusion, one unit platelets. COMPLICATIONS: None. SPECIMENS: None. CONDITION: Stable. DISPOSITION: CV ICU. OPERATIVE FINDINGS: 1. Good quality greater saphenous vein. A second small incision in the thigh was made to divide a large side branch. 2. Good quality left internal mammary artery with dense adhesion to the inner sternal table. 3. LAD 2.0 mm with severe disease grafted in the ifm-gr-[id number] section. 4. First diagonal 1.5 mm with severe disease down to the bifurcation, grafted just from the bifurcation on to more distal of the branches. 5. Obtuse marginal 2.0 mm with severe disease. 6. Transesophageal echocardiography with good contractility and mild left ventricular hypertrophy. INDICATION: Unstable angina, recent percutaneous coronary intervention, coronary artery disease. PROCEDURE IN DETAIL: The patient was brought to the operative suite. General anesthesia was obtained. The patient was prepped and draped. Greater saphenous vein was harvested from the right lower extremity utilizing endoscopic technique. Side branches were divided with electrocautery. Vessels were ligated proximally and distally, and removed. Side branches were clipped. Leg was irrigated and closed in 2 layers. Side branches were then tied and thin OPERATIVE REPORT [id number] TIMO FLETCHER sites were oversewn. Later, leg was wrapped in elastic wrap. Mediastinotomy incision was made. Subcutaneous tissue was divided with electrocautery. Sternum was divided with a saw. Left hemisternum was elevated. Left pleural cavity was entered. Left internal mammary artery and vein were taken down as pedicle graft. Sternal retractor was placed. Pericardium was opened. Heparin was given. Aortic was cannulated. Dual stage venous cannula was inserted. Internal mammary was clipped distally and made ready for anastomosis. Activated clotting time was appropriately elevated. The patient was placed on cardiopulmonary bypass. Sites for distal anastomoses were selected. The patient's temperature was allowed to drift downwardly. Antegrade cardioplegia cannula was inserted. Cross-clamp was placed. Cardioplegia was given antegrade and this was repeated at 15- to 20-minute intervals including down the completed vein grafts. Distal anastomoses were performed in standard technique, proximal anastomosis in single cross-clamp technique, and then the cross-clamp was removed. Aortic root was de-aired. Proximal anastomosis was tied down. Vein grafts were de-aired. Flow was restored. Proximal and distal anastomotic sites were inspected for bleeding with single suture in the distal internal mammary graft. The patient was defibrillated, and in sinus rhythm, atrial and ventricular pacing wires were placed. The patient was fully rewarmed, weaned from cardiopulmonary bypass, and was stable. The patient was decannulated. Cannula sites were oversewn. Protamine was given. Thorough irrigation was undertaken. The grafts lay appropriately and hemostasis was ensured. Drains were placed in mediastinum and both pleural cavities. Pericardial fat was loosely reapproximated in the midline. Left chest was evacuated and irrigated. Internal mammary harvest site was inspected for hemostasis. Sternum was closed with wires. Fascia was closed. Subcutaneous tissue was closed. Skin was closed. Dermabond was placed. Needle and sponge counts were reported as correct. The patient was taken to the ICU in stable condition. TRANSINT:[id number] Voice Confirmation ID: [id number] DOCUMENT ID: [id number] TRAVIS LOUIS MD at 0745 CC: JOSSELINE PROCTOR DO and ALTAGRACIA WEST MD [id number] DICTATION DATE: 07/12/18 1355 RN TRANSITIONAL: 07/12/18 1555 ADM IN [place] [id number] [place] [id number]
--- NOTE | 2018-07-13 10:15 | NUR ---
0700PT RECIEVED UP IN CHAIR ALERT AN DORIENTED O2 2L NC R IJ CVL DRESSING CDI WITH PLASMALYTE 100ML/HR, NITRO 6ML/HR, DECREASED TO 3ML/HR, ZINACEF 11.4ML/HR INSULIN 1 ML/HR, R RADIAL A LINE ZEROED GOOD WAVEFORM WRIST PROTECTOR IN PLACE, MIDSTERNAL AND SUBSTERNAL DRESSING CDI WITH SUBSTERNAL TPM WIRES ATTACHED TO TPM BUT TPM OFF, EAN DRAIN COMPRESSED, CTX3 WITH 2 Y'D TOGETHER TO 20CM SUCTION NO AIR LEAK NOTED, CRITICORE DRAINING YELLOW URINE, RLE HARVEST SITES CDI, 0900 AM MEDS GIVEN, REFUSED BREAKFAST 0930 A LINE AND GÓMEZ DCD PER PROTOCOL TI[P INTACT
--- NOTE | 2018-07-13 12:24 | NUR ---
Nutrition Follow Up: Pt stated that he has no appetite at this time. RD encouraged pt to increase po intake as able; to drink Ensure if unable to eat a meal. Pt is POD 1 CABG. Noted pt with 100% po intake prior to surgery. Diet to advance to Regular as tolerated. BM: 07/10/18 Wt stable I>O Labs reviewed Meds noted including Reglan Rec continue current JIA. Will honor food preferences. RD following.
--- NOTE | 2018-07-13 15:00 | NUR ---
CTS REMOVED BY DR LOUIS
--- NOTE | 2018-07-13 17:48 | NUR ---
1630 ASSISTED UP TO CHAIR 1700 TOLERATING CLEAR LIQUIDS WELL, DOES NOT WISH TO ADVANCE DIET AT THIS TIME USED IS 10X HOURLY THROUGHOUT DAY WITH MINIMAL ENCOURAGEMENT
--- NOTE | 2018-07-13 19:32 | NUR ---
ORAL CARE DONE WITH PERIDEX
[2018-07-14] VITALS (23 sets, daily range): BP systolic 100–125; BP diastolic 47–69
[2018-07-14 05:28] LABS: HEMOGLOBIN 10.4 g/dL (13.5-17.5); MCH 30.9 pg (26.0-34.0); MCHC 33.5 g/dL (31.0-37.0); MEAN PLATELET VOLUME 10.3 fL (7.4-10.4); RBC 3.37 10x6/uL (4.20-6.10); RDW 13.2 % (11.5-14.5); WBC 12.8 10x3/uL (4.8-10.8)
[2018-07-14 06:05] LABS: ALBUMIN 2.7 g/dL (3.4-5.0); ALKALINE PHOSPHATASE 49 U/L (46-116); ALT (SGPT) 19 U/L (10-68); BILIRUBIN - TOTAL 0.49 mg/dL (0.2-1.3); CALC OSMOLALITY 273 mosm/kg (275-300); CALCIUM 8.3 mg/dL (8.5-10.1); CARBON DIOXIDE 29.1 mmol/L (21.0-32.0); CHLORIDE - SERUM 102 mmol/L (98-107); CREATININE - SERUM 0.8 mg/dL (0.6-1.3); GLUCOSE 119 mg/dL (74-106); POTASSIUM - SERUM 4.1 mmol/L (3.5-5.1); PROTEIN - SERUM 5.7 g/dL (6.4-8.2); SODIUM 137 mmol/L (136-145); UREA NITROGEN 11 mg/dL (7-18); eGFR NON AFRICAN AMERICAN > 90 mL/min (90-120)
--- NOTE | 2018-07-14 07:00 | NUR ---
REC'D UP IN CHAIR, VSS. PAIN @ ACCEPTABLE LEVEL.
--- NOTE | 2018-07-14 08:00 | NUR ---
ASSESSED. FAMILY AT BEDSIDE AND UPDATED. DENIES ANY NEED.
--- NOTE | 2018-07-14 09:00 | NUR ---
UP TO BR FOR CHG BATH W/ASSIST BY .
--- NOTE | 2018-07-14 10:00 | NUR ---
REMAINS UP IN CHAIR. DENIES ANY NEED.
--- NOTE | 2018-07-14 11:20 | NUR ---
REASSESSED W/O CHANGES. DENIES ANY NEED AT THIS TIME.
--- NOTE | 2018-07-14 13:00 | NUR ---
AMBULATES W/ PT- RETURNS TO BED AFTERWARD. VSS. DENIES ANY NEED.
--- NOTE | 2018-07-14 15:00 | NUR ---
REASSESSED W/O CHANGE. SS DRSG CHANGED.
--- NOTE | 2018-07-14 15:31 | NUR ---
PERCOCET FOR C/O MS INC PAIN.
--- NOTE | 2018-07-14 18:00 | NUR ---
FAMILY AT BEDSIDE. REMAINS UP IN CHAIR.
--- NOTE | 2018-07-14 19:30 | NUR ---
ASSESSMENT COMPLETE, PER NURSING FLOWSHEET, PATIENT REPOSTIONS SELF, WITH ASSIST, VSS, C/L IN REACH
--- NOTE | 2018-07-14 21:00 | NUR ---
PATIENT INDEPENDENTLY REPOSITIONED SELF. NO OTHER NEEDS VOICED OR NOTED AT THIS TIME, CONTINUE POC
--- NOTE | 2018-07-14 23:00 | NUR ---
RE-ASSESSMENT COMPLETE, PATIENT REPOSITIONED, NO OTHER NEEDS VOICED OR NOTED
[2018-07-15] VITALS (24 sets, daily range): BP systolic 100–134; BP diastolic 49–78
--- NOTE | 2018-07-15 01:00 | NUR ---
PATIENT SLEEPING, PREVIOUSLY INDEPENDENTLY REPOSITIONED SELF, VSS, CONTINUE POC
--- NOTE | 2018-07-15 03:00 | NUR ---
RE-ASSESSMENT COMPLETE. PATIENT REPOSITIONED, NO C/O PAIN AT THIS TIME. NO OTHER NEEDS VOICED OR NOTED, C/L IN REACH
--- NOTE | 2018-07-15 05:00 | NUR ---
COMPLETE LINEN CHANGE AND COMPLETE HIBICLENS BATH. PATIENT UP TO CHAIR, VSS, C/L IN REACH
[2018-07-15 06:05] LABS: HEMATOCRIT 30.1 % (42.0-54.0); HEMOGLOBIN 9.8 g/dL (13.5-17.5); MCH 30.3 pg (26.0-34.0); MCHC 32.6 g/dL (31.0-37.0); MCV 93.2 fL (80.0-100.0); MEAN PLATELET VOLUME 10.9 fL (7.4-10.4); RBC 3.23 10x6/uL (4.20-6.10); RDW 13.3 % (11.5-14.5); WBC 8.7 10x3/uL (4.8-10.8)
[2018-07-15 06:30] LABS: ALBUMIN 2.5 g/dL (3.4-5.0); ALKALINE PHOSPHATASE 48 U/L (46-116); ALT (SGPT) 22 U/L (10-68); BILIRUBIN - TOTAL 0.46 mg/dL (0.2-1.3); CALC OSMOLALITY 276 mosm/kg (275-300); CALCIUM 8.3 mg/dL (8.5-10.1); CARBON DIOXIDE 32.3 mmol/L (21.0-32.0); CHLORIDE - SERUM 104 mmol/L (98-107); CREATININE - SERUM 0.8 mg/dL (0.6-1.3); GLUCOSE 105 mg/dL (74-106); POTASSIUM - SERUM 3.7 mmol/L (3.5-5.1); PROTEIN - SERUM 5.7 g/dL (6.4-8.2); SODIUM 140 mmol/L (136-145); UREA NITROGEN 8 mg/dL (7-18); eGFR NON AFRICAN AMERICAN > 90 mL/min (90-120)
--- NOTE | 2018-07-15 07:30 | NUR ---
REC'D UP IN CHAIR, EYES CLOSED/ RESP UNLABORED. AWAKENS EASILY. ASSESSED. PLEASANT. DENIES ANY NEED AT THIS TIME.
--- NOTE | 2018-07-15 09:00 | NUR ---
FAMILY IN AND UPDATED. AMB W/ PT- WICHO WELL.
--- NOTE | 2018-07-15 11:30 | NUR ---
DR LOUIS IN- ORDERS REC'D. REASSESSED W/O CHANGES. REMAINS UP IN CHAIR.
--- NOTE | 2018-07-15 13:00 | NUR ---
FAMILY AT BEDSIDE. VSS.
--- NOTE | 2018-07-15 13:45 | NUR ---
RT IJ CVL REMOVED- TIP INTACT. MANUAL PRESSURE HELD X5 MIN. NO BLEEDING OR BRUISING/ NO S/S INF. INSTRUCTED PT ON S/S TO REPORT.
--- NOTE | 2018-07-15 15:00 | NUR ---
EYES CLOSED/ RESP UNLABORED.
--- NOTE | 2018-07-15 16:00 | NUR ---
REASSESSED W/O CHANGES. AFVSS.
--- NOTE | 2018-07-15 17:11 | NUR ---
AMB APPROX 350 FT- WICHO WELL. TO CHAIR FOR MEAL. DENIES ANY NEED @ THIS TIME.
--- NOTE | 2018-07-15 20:16 | NUR ---
Nutrition follow-up: Diet: Regular PO intake 100% of most meals Labs reviewed Wt: 184# RDN following.
[2018-07-16] VITALS (11 sets, daily range): BP systolic 92–130; BP diastolic 46–68
[2018-07-16 03:54] LABS: HEMATOCRIT 28.8 % (42.0-54.0); HEMOGLOBIN 9.6 g/dL (13.5-17.5); MCH 30.8 pg (26.0-34.0); MCHC 33.3 g/dL (31.0-37.0); MCV 92.3 fL (80.0-100.0); MEAN PLATELET VOLUME 10.4 fL (7.4-10.4); RBC 3.12 10x6/uL (4.20-6.10); RDW 13.2 % (11.5-14.5); WBC 6.9 10x3/uL (4.8-10.8)
[2018-07-16 04:08] LABS: ALBUMIN 2.4 g/dL (3.4-5.0); ALKALINE PHOSPHATASE 55 U/L (46-116); BILIRUBIN - TOTAL 0.47 mg/dL (0.2-1.3); CALCIUM 8.3 mg/dL (8.5-10.1); CARBON DIOXIDE 32.1 mmol/L (21.0-32.0); CHLORIDE - SERUM 104 mmol/L (98-107); CREATININE - SERUM 0.7 mg/dL (0.6-1.3); GLUCOSE 108 mg/dL (74-106); POTASSIUM - SERUM 3.6 mmol/L (3.5-5.1); PROTEIN - SERUM 5.6 g/dL (6.4-8.2); SODIUM 141 mmol/L (136-145); eGFR NON AFRICAN AMERICAN > 90 mL/min (90-120)
[2018-07-16 04:09] LABS: ALT (SGPT) 33 U/L (10-68); CALC OSMOLALITY 281 mosm/kg (275-300); UREA NITROGEN 12 mg/dL (7-18)
--- NOTE | 2018-07-16 05:40 | NUR ---
PT OOB AND TO RADIOLOGY FOR 2 VIEW CHEST XRAY. WHEN HE RETURNED PT BATHED HIMSELF. BED LINEN CHANGED. SITTING IN CHAIR AT BEDSIDE.
--- NOTE | 2018-07-16 08:48 | NUR ---
BREAKFAST CONSUMED. PT HAS FILLED OUT MENU FOR FUTURE MEALS. MORNING MEDICATIONS PROVIDED. PT NOW UP WALKING WITH PHYSICAL THERAPIST.
--- NOTE | 2018-07-16 09:50 | NUR ---
at bedside at this time. pt denies any needs. call light in reach.
--- NOTE | 2018-07-16 11:38 | NUR ---
pt resting in chair at this time. call light in reach.
--- NOTE | 2018-07-16 12:07 | NUR ---
LUNCH TRAY PROVIDED TO PATIENT. ASKED FOR CUP OF ICE WATER. DENIES ANY OTHER NEEDS. CALL LIGHT IN REACH.
--- NOTE | 2018-07-16 12:40 | NUR ---
DR LOUIS AT BEDSIDE. LEFT EAN DRAIN AND TPM WIRES REMOVED. SITES SWABBED WITH IODINE AND COVERED WITH GAUZE AND TEGADERM DRESSING.
[2018-07-16] MEDS ORDERED: LOPRESSOR25 MG PO (12:43)
[2018-07-16] MEDS ORDERED: AMIODARONE HCL200 MG PO (12:43)
[2018-07-16] MEDS ORDERED: PERCOCET 5-3251 TAB PO (12:44)
[2018-07-16] MEDS ORDERED: ACCUPRIL5 MG PO (12:44)
[2018-07-16] MEDS ORDERED: ASPIRIN EC81 M1 PO (12:44)
--- NOTE | 2018-07-16 14:40 | NUR ---
discharge instructions provided. understand plans for follow up. PM dose of amiodarone and AM dose provided to patient since pharmacy is closed. Pt has bottle of 25mg metoprolol at home and understand to take half tablet tonight and half tablet in the morning. these instructions were also provided to . pt and both indicated understanding of medication administration. printed prescription for percocet provided with discharge intructions.
--- NOTE | 2018-07-17 18:14 | MORECARE ---
CASE MANAGEMENT DISCHARGE SUMMARY PATIENT: TIMO FLETCHER UNIT: [id number] ADM DATE: 07/09/18 AGE: 72 : 45 SEX: M ROOM/BED: D.[facility] AUTHOR: TALIA,DOC PHYSICIAN: REFERRING PHYSICIAN: BERENICE MICHAEL MD DATE OF SERVICE: 07/17/18 Discharge Plan Patient Name: TIMO FLETCHER Facility: [facility]:[place] : 1945 Planned Disposition: Home Anticipated Discharge Date: Discharge Date: 07/16/2018 Expected LOS: Initial Reviewer: [email or web address] Initial Review Date: 07/08/2018 Generated: 07/17/18 7:13 pm DCP- Discharge Planning Updated by [email or web address]: Maria Isabel Mcintosh on 07/12/18 4:[address] LATE ENTRY 07/11/18 @ 1730 Patient Name: TIMO FLETCHER Admission Status: ER Accout number: [id number] Admission Date: 07-09-2018 : 1945 Admission Diagnosis:ATHSCL HEART DISEASE OF [place] CORONARY ARTERY W/O ANG Attending: DAVID MICHAEL Current LOS: 3 Anticipated DC Date: Planned Disposition: Home Primary Insurance: [employer] Discharge Planning Comments: CM met with patient and spouse (Terrence) at bedside after explaining CM role and obtaining verbal consent. Patient lives at home with his Terrence and plans to return there upon discharge. Patient feels this would be a safe discharge. CM discussed availability / needs of home health and medical equipment. Patient denies any discharge needs at this time. Patient may need walk test if 02 needed at d/c. Patient states he will have his drive him home upon discharge. CM will continue to follow and assist as needed with discharge planning / needs. Skin Care Consultant: Maria Isabel Mcintosh DCPIA - Discharge Planning Initial Assessment Updated by [email or web address]: Maria Isabel Mcintosh on 07/12/18 5:04 pm * Is the patient Alert and Oriented? Yes * How many steps to enter\exit or inside your home? * PCP [facility] * Pharmacy [facility] * Preadmission Environment Home with Family * ADLs Independent * Equipment None * List name and contact numbers for known caregivers / representatives who currently or will assist patient after discharge: TERRENCE FLETCHER- SPOUSE- [phone] * Verbal permission to speak to the caregivers and representatives has been obtained from the patient. Yes * Community resources currently utilized None * Additional services required to return to the preadmission environment? No * Can the patient safely return to the preadmission environment? Yes * Has this patient been hospitalized within the prior 30 days at any hospital? No Last DP export: 07/12/18 4:09 p Patient Name: TIMO FLETCHER Page [id number] at 1814 All edits/amendments must be made on the electronic document DICTATION DATE: 07/17/181812 LENS GRINDING MACHINE OPERATOR: JESSICA 07/17/181812 RPT#: [id number] DC DATE:07/16/18 STATUS: DIS IN [facility] [address] [place] [address] END OF REPORT
== END 2018-07-16 15:06 | disposition home or self-care (01) | DRG 234 ==
LOC: D.ER 03:55 → OBSVTIME 05:06 → D.M2 05:06 → D.CVICU 07-09 17:12
PROVIDERS: Emergency Medicine; Internal Medicine Interventional Cardiology; Internal Medicine Nephrology; Thoracic Surgery (Cardiothoracic Vascular Surgery); ADMIT Emergency Medicine; ATTEND Emergency Medicine
PROC: B2111ZZ Fluoroscopy of Multiple Coronary Arteries using Low Osmolar Contrast (ICD-10-PCS; principal; 2018-07-09)
PROC: B2151ZZ Fluoroscopy of Left Heart using Low Osmolar Contrast (ICD-10-PCS; 2018-07-09)
PROC: 4A023N7 Measurement of Cardiac Sampling and Pressure, Left Heart, Percutaneous Approach (ICD-10-PCS; 2018-07-09)
PROC: 02100Z9 Bypass Coronary Artery, One Artery from Left Internal Mammary, Open Approach (ICD-10-PCS; 2018-07-12)
PROC: 021109W Bypass Coronary Artery, Two Arteries from Aorta with Autologous Venous Tissue, Open Approach (ICD-10-PCS; 2018-07-12)
PROC: 06BP4ZZ Excision of Right Saphenous Vein, Percutaneous Endoscopic Approach (ICD-10-PCS; 2018-07-12)
PROC: B24BZZ4 Ultrasonography of Heart with Aorta, Transesophageal (ICD-10-PCS; 2018-07-12)
PROC: 5A1221Z Performance of Cardiac Output, Continuous (ICD-10-PCS; 2018-07-12)
DX: I25.110 Atherosclerotic heart disease of native coronary artery with unstable angina pectoris (principal); I10 Essential (primary) hypertension; E78.5 Hyperlipidemia, unspecified; M19.90 Unspecified osteoarthritis, unspecified site

== ENCOUNTER → 2018-07-25 11:03 | Outpatient (CLI) | payer MEDICARE ==
[2018-07-09 18:42] VITALS: BMI 23.3
[~2018-07-25 11:03] MED LIST changes: +ACCUPRIL5 MG PO; +AMIODARONE HCL200 MG PO; +ASPIRIN EC81 M1 PO; +ISOSORBIDE MONO30 M1 PO; +LIPITOR20 MG PO; +LOPRESSOR25 MG PO; +PERCOCET 5-3251 TAB PO
== END | disposition home or self-care (01) ==
LOC: D.US 11:03
PROVIDERS: ATTEND Thoracic Surgery (Cardiothoracic Vascular Surgery)
DX: M79.651 Pain in right thigh (principal)

== ENCOUNTER → 2018-08-06 13:32 | Outpatient (CLI) | payer MEDICARE ==
[2018-07-09 18:42] VITALS: BMI 23.3
[2018-08-06 14:15] LABS: HEMATOCRIT 35.7 % (42.0-54.0); HEMOGLOBIN 11.5 g/dL (13.5-17.5); MCH 29.8 pg (26.0-34.0); MCHC 32.2 g/dL (31.0-37.0); MCV 92.5 fL (80.0-100.0); MEAN PLATELET VOLUME 9.7 fL (7.4-10.4); RBC 3.86 10x6/uL (4.20-6.10); RDW 13.3 % (11.5-14.5); WBC 6.7 10x3/uL (4.8-10.8)
[2018-08-06 14:30] LABS: ALBUMIN 3.6 g/dL (3.4-5.0); ANION GAP 9.7 mmol/L (8-16); BILIRUBIN - TOTAL 0.33 mg/dL (0.2-1.3); CALCIUM 8.8 mg/dL (8.5-10.1); CARBON DIOXIDE 31.9 mmol/L (21.0-32.0); CREATININE - SERUM 1.1 mg/dL (0.6-1.3); POTASSIUM - SERUM 4.6 mmol/L (3.5-5.1); PROTEIN - SERUM 7.1 g/dL (6.4-8.2)
== END | disposition home or self-care (01) ==
LOC: D.RAD 13:32
PROVIDERS: ATTEND Thoracic Surgery (Cardiothoracic Vascular Surgery)
DX: J90 Pleural effusion, not elsewhere classified (principal); D64.9 Anemia, unspecified

== ENCOUNTER 2018-12-26 06:54 | Day surgery (SDC) | payer MEDICARE ==
[~2018-12-26] VITALS: Ht 185.4 cm; Wt 82.1 kg
[~2018-12-26 06:54] MED LIST changes: +LISINOPRIL2.5 MG PO; +TOPROL XL25 MG PO
[2018-12-26 07:27] LABS: CALC OSMOLALITY 281 mosm/kg (275-300); CALCIUM 9.1 mg/dL (8.5-10.1); CARBON DIOXIDE 30.3 mmol/L (21.0-32.0); CHLORIDE - SERUM 105 mmol/L (98-107); CREATININE - SERUM 0.9 mg/dL (0.6-1.3); GLUCOSE 93 mg/dL (74-106); POTASSIUM - SERUM 4.1 mmol/L (3.5-5.1); SODIUM 141 mmol/L (136-145); UREA NITROGEN 16 mg/dL (7-18); eGFR NON AFRICAN AMERICAN 88 mL/min (90-120)
[2018-12-26 07:30] LABS: HEMATOCRIT 40.2 % (42.0-54.0); HEMOGLOBIN 12.9 g/dL (13.5-17.5); MCH 29.1 pg (26.0-34.0); MCHC 32.1 g/dL (31.0-37.0); MCV 90.7 fL (80.0-100.0); MEAN PLATELET VOLUME 11.1 fL (7.4-10.4); RBC 4.43 10x6/uL (4.20-6.10); WBC 4.8 10x3/uL (4.8-10.8)
[2018-12-26 07:43] VITALS: BP 182/100; Ht 185.4 cm; Wt 82.1 kg
--- NOTE | 2018-12-26 15:04 | OP ---
PATIENT NAME: TIMO FLETCHER MEDICAL RECORD: [id number] :45 LOCATION:D.[facility] ADMISSION DATE: SURGEON: ANIVAL MARTINEZ MD DATE OF OPERATION: 12/26/2018 PREOPERATIVE DIAGNOSES: 1. Recurrent right inguinal hernia. 2. Symptomatic left inguinal hernia. POSTOPERATIVE DIAGNOSES: 1. Recurrent right indirect inguinal hernia. 2. Indirect left inguinal hernia. PROCEDURES: 1. Open recurrent right indirect inguinal hernia repair with bilayer preperitoneal polypropylene mesh. 2. Open left indirect inguinal hernia repair with bilateral preperitoneal polypropylene mesh. SURGEON: Anival Martinez MD KILN MAINTENANCE: None. BLOOD LOSS: Minimal. ANESTHESIA: General. COMPLICATIONS: None. Both hernias were not incarcerated. OPERATIVE COURSE: The patient was conveyed to the operating room electively on 12/26/2018. General anesthesia was induced by the anesthesia staff. The abdomen and genitals were sterilely prepped and draped. A transverse incision was accomplished in the right inguinal area. Sharp dissection was carried down through the skin and subcutaneous tissue through Itz's fascia. Itz's fascia was incised as well. Connective tissue was then excised from the external oblique aponeurosis. The external oblique aponeurosis was opened along the direction of its fibers. I bluntly dissected down through the internal oblique and transversus abdominis muscles. I created a preperitoneal pocket. I reduced an indirect hernia in its entirety. There was no direct component. No femoral component. I then cut out 2 ovals of a polypropylene mesh. The 2 ovals were sutured together while on top of the other with a running #1 Ethibond suture. The mesh was placed in the preperitoneal space. Once I was satisfied with placement of the mesh, I allowed the internal oblique and transversus abdominis muscles to come together and I sutured them together with multiple interrupted horizontal mattress 0 Surgidacs incorporating a portion of the underlying mesh. The external oblique aponeurosis was closed with running #1 Vicryls. Itz's fascia was approximated with interrupted 3-0 Vicryls. The subdermis was approximated with interrupted 3-0 Vicryls. The skin was approximated with a running intracuticular 3-0 Vicryl. Benzoin and Steri-Strips were applied. OPERATIVE REPORT [id number] TIMO FLETCHER Attention was then turned to the left side. A transverse incision was accomplished in the left groin. Sharp dissection was carried down through the skin and subcutaneous tissue as well as Itz's fascia. The external oblique aponeurosis was then cleaned of overlying connective tissue. External oblique aponeurosis was incised along the direction of its fibers. I bluntly dissected down through the internal oblique and transversus abdominis muscles. A preperitoneal pocket was fashioned bluntly. An indirect hernia was reduced in its entirety. There was no direct component. No femoral component. Two pieces of polypropylene mesh were cut into ovals and one sutured on top of the other with a running #1 Ethibond. I then placed the mesh in the preperitoneal space. Once I was satisfied with placement of the mesh, I allowed the internal oblique and transverse abdominis muscle to come together and these were placed in a horizontal mattress fashion incorporating a portion of the underlying mesh. The external oblique aponeurosis was closed with running #1 Vicryls. Itz's fascia was approximated with interrupted 3-0 Vicryls. The subdermis was approximated with interrupted 3-0 Vicryls. The skin was approximated with a running intracuticular 3-0 Vicryl. Benzoin and Steri-Strips were applied. The patient was then extubated and conveyed to post-anesthesia care unit where he was in stable condition. He will be dismissed home on [place] as well as [place]. I will see him in the office in 2-4 weeks. At no time during the operation was there any apparent nerve injury. TRANSINT:[id number] Voice Confirmation ID: [id number] DOCUMENT ID: [id number] ANIVAL MARTINEZ MD at 1504 CC: JOSSELINE PROCTOR DO and ALTAGRACIA WEST MD [id number] DICTATION DATE: 12/26/18 1259 FILM PROCESSOR: 12/26/18 1408 [address] [place] [id number] [place] [id number]
== END 2018-12-26 15:10 | disposition home or self-care (01) ==
LOC: D.OPS 06:54 → D.PAN 08:00 → D.OPS 08:00 → D.PAN 08:50 → D.OPS 09:30
PROVIDERS: Anesthesiology; ATTEND Surgery
DX: K40.21 Bilateral inguinal hernia, without obstruction or gangrene, recurrent (principal)

== ENCOUNTER 2019-04-14 10:37 | Emergency (ER) | payer MEDICARE ==
[~2019-04-14] VITALS: Ht 185.4 cm; Wt 81.8 kg
[2019-04-14 11:01] LABS: BASOPHILS 0.3 % (0-2); EOSINOPHILS 3.1 % (0-7); LYMPHOCYTES 29.3 % (15-50); MCH 30.5 pg (26.0-34.0); MCHC 33.3 g/dL (31.0-37.0); MCV 91.5 fL (80.0-100.0); MEAN PLATELET VOLUME 10.8 fL (7.4-10.4); NEUTROPHILS 54.3 % (40-80); PLATELET COUNT 190 10x3/uL (130-400); RBC 4.59 10x6/uL (4.20-6.10); RDW 13.2 % (11.5-14.5); WBC 5.8 10x3/uL (4.8-10.8)
[2019-04-14 11:30] LABS: CALC OSMOLALITY 279 mosm/kg (275-300); CALCIUM 9.3 mg/dL (8.5-10.1); CARBON DIOXIDE 32.3 mmol/L (21.0-32.0); CHLORIDE - SERUM 105 mmol/L (98-107); CREATININE - SERUM 1.1 mg/dL (0.6-1.3); GLUCOSE 95 mg/dL (74-106); POTASSIUM - SERUM 4.5 mmol/L (3.5-5.1); SODIUM 141 mmol/L (136-145); UREA NITROGEN 11 mg/dL (7-18); eGFR NON AFRICAN AMERICAN 70 mL/min (90-120)
[2019-04-14 11:45] LABS: ALBUMIN 3.6 g/dL (3.4-5.0); ALKALINE PHOSPHATASE 63 U/L (30-120); ALT (SGPT) 30 U/L (10-68); BILIRUBIN - TOTAL 0.45 mg/dL (0.2-1.3); CREATINE KINASE 164 UL (21-232); MAGNESIUM - SERUM 2.1 mg/dL (1.8-2.4); PROTEIN - SERUM 7.4 g/dL (6.4-8.2)
[2019-04-14 11:46] LABS: TROPONIN-I < 0.017 ng/mL (0.000-0.060)
[2019-04-14 11:53] LABS: INR 0.99 (0.85-1.17)
[2019-04-14 12:13] VITALS: Ht 185.4 cm; Wt 81.8 kg
[2019-04-14 13:07] VITALS: BP 150/73
--- NOTE | 2019-04-15 11:54 | CN ---
PATIENT NAME:TIMO FLETCHER MEDICAL RECORD: [id number] : 45 LOCATION:.ER ADMIT DATE: ACCOUNT: [id number] CONSULTING PHYSICIAN: ALY LUCIO MD REFERRING PHYSICIAN: ANIVAL TINAJERO MD DATE OF CONSULTATION: 04/14/2019 DIAGNOSES: 1. Chest pain. 2. Coronary artery disease. 3. Previous coronary artery bypass graft surgery. 4. Hypertension. 5. Hyperlipidemia. HISTORY OF PRESENT ILLNESS: For the past week and a half, Mr. Fletcher has had chest pain bilaterally in his chest. He does describe it as a pressure; however, it is different than his previous angina. He is status post bypass surgery last June. He has tried nitro for this and it did not relieve the pain. When he has the pain, it usually lasts anywhere from 1-2 hours. There is nothing that he does that exacerbates the pain. It is not positional. It is a pressure sensation bilaterally of the upper chest. His EKG is with no ST-T changes. His troponin is normal. PHYSICAL EXAMINATION: CONSTITUTIONAL/GENERAL APPEARANCE: Well nourished, well developed, appears stated age. EYES: Lids and conjunctivae noninjected. No discharge. No pallor. ENT: Lips within normal limit. No cyanosis. No pallor. NECK: Carotid arteries, bilateral normal upstroke. No bruits. No thrills. No jugular venous pressure or distention. CERVICAL LYMPH NODES: Nontender. Nonenlarged. THYROID: Not enlarged. No nodules. CARDIOVASCULAR: Precordial exam, nondisplaced. No heaves or pericardial thrills. Rate and rhythm, regular. Heart sounds, normal S1, normal S2. No S3, no gallop, no rub. Systolic murmur, not heard. Diastolic murmur, not heard. RESPIRATORY: Respiratory effort, unlabored. Normal curvature. No thoracic deformity. No chest wall tenderness. Percussion, resonant. Auscultation, clear. No wheezes, no rales, no rhonchi. ABDOMEN: Soft, nondistended, nontender. No abdominal pain, no vomiting and normal appetite. MUSCULOSKELETAL: No joint tenderness, normal gait, normal tone. SKIN: Warm and dry. OVERALL IMPRESSION: Chest pain of unknown etiology with some typical components for angina, some atypical components. We will discharge from the Emergency Room, set him up for stress testing Cardiolite imaging. Further care depends upon the findings of the stress test. TRANSINT:[id number] Voice Confirmation ID: [id number] DOCUMENT ID: [id number] CONSULT REPORT [id number] TIMO FLETCHER JEFFREY MD at 1154 CC: [id number] DICTATION DATE: 04/14/19 1215 NUTRITION CONSULTANT: 04/14/19 1343 DEP ER 04/14/[address] [id number]
== END 2019-04-14 13:07 | disposition home or self-care (01) ==
LOC: D.ER 10:37
PROVIDERS: Family Medicine
DX: R07.89 Other chest pain (principal); I25.10 Atherosclerotic heart disease of native coronary artery without angina pectoris; I25.2 Old myocardial infarction; Z95.1 Presence of aortocoronary bypass graft

== ENCOUNTER 2019-04-17 10:34 | Outpatient (CLI) | payer MEDICARE ==
[~2019-04-17] VITALS: Ht 185.4 cm; Wt 81.8 kg
--- NOTE | ~2019-04-17 | HEMODYNAMI ---
PATIENT:TIMO FLETCHER MEDICAL RECORD: [id number] : 45 [id number] ADMISSION DATE: 04/17/19 Generatedon:04/17/201916:48 Patient name: TIMO FLETCHER Patient #: [id number] SSN: : 1945 Date of study: 04/17/2019 Page: Of Hemodynamic Procedure Report Patient Data Patient Demographics Procedure consent was obtained First Name: TIMO Gender: Male Last Name: CHANCE : 1945 Patient #: [id number] Age: 73 year(s) Race: Unknown Additional ID: [id number] Contact details Address: [address] [place] [address] State: [place] City: [place] Zip code: [address] Past Medical History Allergies: No known allergies Admission Admission Data Admission Date: 04/17/2019 Admission Time: 10:34 Arrival Date: 04/17/2019 Arrival Time: 0:00 Admit Source: Emergency department Height (in.): 72.83 BSA: 2.06 (m2) Height (cm.): 185 BMI: 23.96 (kg/m2) Weight (lbs.): 180.78 Weight (kg.): 82 Lab Results Lab Result Date: 04/17/2019 Lab Result Time: 0:00 Biochemistry Name Units Result Min Max BUN mg/dl 15 --(--*-)-- 7 18 Creatinine mg/dl 1 --(--*-)-- 0.6 1.3 eGFR ml/min 78 *-(----)-- 90 120 NONAFRICAN CBC Name Units Result Min Max Hematocrit % 42.4 --(*---)-- 42 54 Hemoglobin g/dl 13.9 --(*---)-- 13.5 17.5 Procedure Procedure Types Cath Procedure Diagnostic Procedure LHC LH w/Coronaries w/Grafts FFR/IVUS FFR Initial Sedation Charges Moderate Sedation up to 15 minutes PCI Procedure Coronary Stent Coronary Stent Initial Hemochron ACT Test Procedure Description Procedure Date Procedure Date: 04/17/2019 Procedure Start Time: 16:22 Procedure End Time: 16:46 Procedure Staff Name Function Alfredo Medellin MD Performing Physician Denia Ordaz RT Monitor Genevieve Cooper RT Scrub Cesario Em RN Nurse Estee Ortiz RN Deli Associate Procedure Data Cath Procedure Fluoroscopy Diagnostic fluoroscopy Total fluoroscopy Time: 4.6 time: 4.6 min min Diagnostic fluoroscopy Total fluoroscopy dose: 794 dose: 794 mGy mGy Contrast Material Contrast Material Type Amount (ml) Isovue 370 135 Entry Location Entry Primary Successful Side Size Upsize Upsize Entry Closure Succes sful Closure Location (Fr) 1 (Fr) 2 (Fr) Remarks Device Remarks Femoral Right 6 Fr Exoseal artery Short Estimated blood loss: 10 ml Diagnostic catheters Device Type Used For End Catheter Placement MULTIPACK Pigtail 5 Fr Procedure catheter MULTIPACK JL 4.0 5Fr Procedure catheter MULTIPACK 3DRC 5Fr Procedure catheter DIAGNOSTIC AR2 MOD 5 Fr Procedure catheter ([id number]) Procedure Complications No complications Procedure Medications Medication Administration Route Dosage Oxygen etCO2 Nasal cannula 2 l/min Lidocaine 2% added to field 20 Heparin Flush Bag added to field 2 bags (1000units/500ml NS) 0.9% NaCl I.V. 100 ml/hr Versed I.V. 2 mg Fentanyl I.V. 100 mcg Versed I.V. 1 mg Fentanyl I.V. 50 mcg Heparin Bolus I.V. 4000 units Integrilin (Bolus I.V. 7.3 ml 2mg/ml) Versed I.V. 1 mg Fentanyl I.V. 50 mcg Versed I.V. 1 mg Fentanyl I.V. 50 mcg Plavix P.O. 600 mg Hemodynamics Rest BSA: 2.06 (m2) HGB: 13.9 (g/dl) O2 Consumption: Estimated: 235.9 (ml/min) O2 Con sumption indexed: Estimated:114.51 (ml/min/m) Heart Rate: 68 (bpm) Snapshots Pre Cath Intra NCS Post Cath Vital Signs Time Heart Resp SPO2 etCO2 NIBP (mmHg) Rhythm Pain Sedation Rate (ipm) (%) (mmHg) Status Level (bpm) 16:16:58 65 11 98 41.6 167/78(128) NSR 0 (11) 10(A) , No pain 16:21:20 62 18 97 43.1 150/84(133) NSR 0 (11) 10(A) , No pain 16:25:42 63 16 96 52.1 140/76(126) NSR 0 (11) 9(A) , No pain 16:29:58 66 18 97 47.6 140/81(126) NSR 0 (11) 10(A) , No pain 16:34:16 72 14 97 45.3 150/84(116) NSR 0 (11) 9(A) , No pain 16:38:34 70 18 97 45.3 137/78(114) NSR 0 (11) 10(A) , No pain 16:42:50 66 17 96 43.8 133/76(112) NSR 0 (11) 10(A) , No pain Medications Time Medication Route Dose Verified Delivered Reason Notes Effectiveness by by 16:15:10 Oxygen etCO2 2 Alfredo Alfredo used for Nasal l/min Vignesh Medellin MD procedure cannula 16:15:17 Lidocaine 2% added 20ml Alfredo Alfredo for local to vial Vignesh Medellin MD anesthetic field 16:15:39 Heparin Flush added 2 Alfredo Alfredo used for Bag to bags Vignesh Medellin MD procedure (1000units/500ml field NS) 16:15:49 0.9% NaCl I.V. 100 Alfredo Buffie Per physician ml/hr Vignesh Ortiz RN 16:20:01 Versed I.V. 2 mg Alfredo Buffie for sedation Vignesh Ortiz RN 16:20:09 Fentanyl I.V. 100 Alfredo Buffie for sedation mcg Vignesh Ortiz RN 16:25:16 Versed I.V. 1 mg Alfredo Buffie for sedation Vignesh Ortiz RN 16:25:20 Fentanyl I.V. 50 Alfredo Buffie for sedation mcg Vignesh Ortiz RN 16:27:41 Heparin Bolus I.V. 4000 Alfredo Majorie for verif ied units Vignesh Ortiz RN anticoagulation with dr medellin 16:29:38 Integrilin I.V. 7.3 Alfredo Buffie for waste d (Bolus 2mg/ml) ml Vignesh Ortiz RN antiplatelet 2.7 ml therapy of vial 16:33:06 Versed I.V. 1 mg Alfredo Majorie for sedation Vignesh Ortiz RN 16:33:09 Fentanyl I.V. 50 Alfredo Buffie for sedation mcg Vignesh Ortiz RN 16:37:31 Versed I.V. 1 mg Alfredo Fontanez for sedation Vignesh Ortiz RN 16:37:34 Fentanyl I.V. 50 Alfredo Fontanez for sedation mcg Vignesh Ortiz RN 16:41:18 Plavix P.O. 600 Alfredo Fontanez for mg Vignesh Ortiz RN antiplatelet therapy Procedure Log Time Note 15:50:08 Informed consent obtained and on chart 15:50:29 Risk of Mortality: .1 15:50:29 Risk of ANJALI: .5 15:50:29 Risk of blood transfusion: .1 15:50:31 Procedure Status Urgent Heart Cath (IP). 15:50:32 Time tracking: Regular hours (M-F 7:00 - 5:00) 15:50:35 Plan of Care:Hemodynamics will remain stable., Cardiac rhythm will remain stable., Comfort level will be maintained., Respiratory function will remain adequate., Patient/ family verbilizes understanding of procedure., Procedure tolerated without complication., Recovers from procedure without complications.. 15:50:37 Genevieve DORMAN(R) sent for patient. Start room use. 15:50:43 H&P Date Dictated: 04/17/2019 ER History on chart.. 15:50:49 Patient allergic to No known allergies 15:52:04 Lab Result : BUN 15 mg/dl 15:52:04 Lab Result : Creatinine 1 mg/dl 15:52:04 Lab Result : eGFR NONAFRICAN 78 ml/min 15:52:04 Lab Result : Hemoglobin 13.9 g/dl 15:52:04 Lab Result : Hematocrit 42.4 % 16:15:10 Oxygen 2 l/min etCO2 Nasal cannula was administered by Alfredo Medellin MD; used for procedure; Verbal order read back and verified. 16:15:17 Lidocaine 2% 20ml vial added to field was administered by Alfredo Medellin MD; for local anesthetic; Verbal order read back and verified. 16:15:39 Heparin Flush Bag (1000units/500ml NS) 2 bags added to field was administered by Alfredo Medellin MD; used for procedure; Verbal order read back and verified. 16:15:39 Patient received from ED to CCL 1 Alert and oriented. Tansferred to table in Supine position. 16:15:40 Warm blankets applied, and cyndi hugger turned on for patient comfort. 16:15:41 Correct patient and procedure confirmed by team. 16:15:41 ECG and BP/O2 sat monitors applied to patient. 16:15:41 Vital chart was started 16:15:42 Baseline sample Acquired. 16:15:48 Rhythm: sinus rhythm 16:15:49 0.9% NaCl 100 ml/hr I.V. was administered by Estee Ortiz RN; Per physician; Verbal order read back and verified. 16:15:49 Full Disclosure recording started 16:15:50 Pre-procedure instructions explained to patient. 16:15:52 Pre-op teaching completed and patient verbalized understanding. 16:16:03 Patient NPO since Midnight. 16:16:06 Is the patient allergic to Iodine/contrast media? No. 16:16:07 Is patient on blood thinner?No 16:16:08 Patient diabetic? No. 16:16:11 Previous problem with sedation/anesthesia? No ? 16:16:13 Snore? Yes 16:16:14 Sleep apnea? No 16:16:15 Deviated septum? No 16:16:16 Opens mouth fully? Yes 16:16:17 Sticks out tongue? Yes 16:16:18 Airway obstruction? No ? 16:16:20 Dentures? No ? 16:16:28 Pre procedure: right dorsailis pedis pulse 1+ Palpable, but thready & weak; easily obliterated 16:16:30 Patient pain scale 0/10 ?. 16:16:34 IV patent on arrival in left antecubital with 0.9% NaCl at O. 16:16:37 Lab results completed and on chart. 16:16:40 Right groin area was prepped with chlora-prep and draped in sterile fashion 16:16:41 Alarms reviewed by R. N. 16:16:41 Sharps counted by scrub and verified by R.N. 16:16:43 Use device set Femoral Dx 16:16:44 ACIST Syringe (54863) opened to sterile field. 16:16:45 Bag Decanter (2002) opened to sterile field. 16:16:46 ACIST Hand Control (97431) opened to sterile field. 16:16:46 ACIST Manifold (81335) opened to sterile field. 16:16:47 Tegaderm 4 x 4 (1626W) opened to sterile field. 16:16:48 Medline Cath Pack ([id number]) opened to sterile field. 16:16:48 DIAGNOSTIC Multipack 5Fr catheter set (NU8982) opened to sterile field. 16:16:50 EMERALD Guide Wire (502-829) opened to sterile field. 16:18:41 SHEATH 6FR [place] (YHH664) opened to sterile field. 16:19:37 Patient Weight : 180.78 lbs 16:19:40 Patient Height : 72.83 inches 16:19:42 Admit Source: Emergency department 16:19:45 Arrival Date: 04/17/2019 12:00:00 AM 16:19:51 --------ALL STOP TIME OUT------ 16:19:51 Final Timeout: patient, procedure, and site verified with staff and physician. All members of the team are in agreement. 16:19:53 Right groin site verified by team. 16:20:00 Fire Safety Assessment: A--An alcohol-based skin anteseptic being used preoperatively., C--Open oxygen or nitrous oxide is being used., D--An ESU, laser, or fiber-optic light is being used. 16:20:01 Versed 2 mg I.V. was administered by Estee Ortiz RN; for sedation; Verbal order read back and verified. 16:20:08 Physical assessment completed. ASA score P 2 - A patient with mild systemic disease as per Alfredo Medellin MD. 16:20:09 Fentanyl 100 mcg I.V. was administered by Estee Ortiz RN; for sedation; Verbal order read back and verified. 16:20:14 2) 60-89 Mildly reduced kidney function, and other findings (as for stage 1) point to kidney disease. 16:20:17 Maximum allowable contrast dose (3.7 X eGFR X 0.75)216 ml. 16:20:21 Sedation plan: IV Moderate Sedation Medication:Versed, Fentanyl 16:22:26 Procedure started. 16:22:36 Local anesthetic to right femoral artery with Lidocaine 2% by Alfredo Medellin MD.INITIAL ACCESS ONLY 16:23:10 A 6 Fr Short sheath was inserted into the Right Femoral artery 16:23:41 A MULTIPACK Pigtail 5 Fr catheter was advanced over the wire and used for Procedure. 16:23:50 LV gram done using JOSE 16::52 Injector settings: Ml/sec: 10, Volume: 20, 16:24:03 EF : 60 % 16:24:04 Catheter removed. 16:24:36 A MULTIPACK JL 4.0 5Fr catheter was advanced over the wire and used for Procedure. 16:25:16 Versed 1 mg I.V. was administered by Estee Ortiz RN; for sedation; Verbal order read back and verified. 16:25:20 Fentanyl 50 mcg I.V. was administered by Estee Ortiz RN; for sedation; Verbal order read back and verified. 16:25:24 LCA angiography performed. 16:25:35 Catheter removed. 16::26 A MULTIPACK 3DRC 5Fr catheter was advanced over the wire and used for Procedure. 16:26:30 MARCIAL to LAD angiography performed. 16::54 RCA angiography performed. 16::59 Catheter removed. 16:27:13 A DIAGNOSTIC AR2 MOD 5 Fr catheter ([id number]) was advanced over the wire and used for Procedure. 16:27:41 Heparin Bolus 4000 units I.V. was administered by Estee Ortiz RN; for anticoagulation; verified with dr medellin Verbal order read back and verified. 16:28:16 SVG to OM angiography performed. 16:29:02 SVG to Diag angiography performed. 16:29:04 Catheter removed. 16:29:37 Proceeding to intervention. 16:29:38 Integrilin (Bolus 2mg/ml) 7.3 ml I.V. was administered by Estee Ortiz RN; for antiplatelet therapy; wasted 2.7 ml of vial Verbal order read back and verified. 16:30:04 Farley Verrata Plus pressure wire (70527W) opened to sterile field. 16:30:05 INFLATOR Merit BasixCompak (TE6662) opened to sterile field. 16:30:42 GUIDE 6FR AR 2.0 catheter (YD1YE92) opened to sterile field. 16:30:44 GUIDE 6FR XBLAD 4.0 catheter ([id number]) opened to sterile field. 16:31:29 GRAPHIX 182cm guide wire ([id number]) opened to sterile field. 16:31:42 EMERALD Guide Wire (502-455) opened to sterile field. 16:32:18 6 Fr AR 2 guide catheter was inserted over the wire 16:32:25 FFR/IFR wire advanced. 16:33:06 Versed 1 mg I.V. was administered by Estee Ortiz RN; for sedation; Verbal order read back and verified. 16:33:09 Fentanyl 50 mcg I.V. was administered by Estee Ortiz RN; for sedation; Verbal order read back and verified. 16:33:20 Wire advanced across lesion. 16:34:06 SVG OM1 lesion measured at .95 with IFR 16:34:39 Wire removed. 16:34:40 Guide catheter removed. 16:35:04 Pre PCI Site: [place] Ramus has 90% stenosis. 16:35:10 6 Fr XBLAD 4 guide catheter was inserted over the wire 16:35:45 PT GRAPHIX wire advanced. 16:36:26 Wire advanced across lesion. 16:37:23 Place stent Inflation Number: 1 A MANDEEP RX 2.5 x 12 stent ([id number]) was prepped and advanced across the Ramus . The stent was deployed at 11 WAQAR for 0:00 (min:sec) . 16:37:31 Versed 1 mg I.V. was administered by Estee Ortiz RN; for sedation; Verbal order read back and verified. 16:37:34 Fentanyl 50 mcg I.V. was administered by Estee Ortiz RN; for sedation; Verbal order read back and verified. 16:37:37 Inflation number: 2 The stent balloon was then re-inflated across the Ramus to 15 WAQAR for 0:00 (min:sec) . 16:37:53 Stent catheter was removed intact over wire. 16:37:54 Wire removed. 16:37:54 Guide catheter removed. 16:38:09 EXOSEAL 6Fr (EX600) opened to sterile field. 16:38:45 Sheath removed intact; hemostasis achieved with Exoseal to the Right Femoral artery. 16:39:09 Procedure ended.(Physican Out) 16:40:29 Fluoroscopy time 04.60 minutes. 16:40:33 Flurop Dose total: 794 16:40:33 Fluoroscopy dose: 794 mGy 16:40:40 Dose Area Product 26677 mGy/cm. 16:40:45 Contrast amount:Isovue 370 135ml. 16:40:50 Maximum allowable dose exceeded? No. 16:40:51 Sharps counted by scrub and verified by R.N. 16:40:53 Post-op/insertion site Right Femoral artery dressed using a 4 x 4 and Tegaderm. 16:40:56 Post-procedure physical assessment completed. ASA score P 2 - A patient with mild systemic disease as per Alfredo Medellin MD. 16:40:59 Post procedure rhythm: sinus rhythm 16:41:01 Estimated blood loss: 10 ml 16:41:02 Post procedure instruction explained to patient.Patient verbalizes understanding. 16:41:03 Patient needs reinforcement of post procedure teaching. 16:41:18 Plavix 600 mg P.O. was administered by Estee Ortiz RN; for antiplatelet therapy; Verbal order read back and verified. 16:41:31 Procedure type changed to Cath procedure, Diagnostic procedure, LHC, LHC w/Coronaries w/Grafts, FFR/IVUS, FFR Initial, Sedation Charges, Moderate Sedation up to 15 minutes, PCI procedure, Coronary Stent, Coronary Stent Initial, Hemochron ACT Test 16:43:35 Procedure and supply charges have been captured, reviewed, submitted and are correct. 16:43:38 Procedure Complication : No complications 16:43:40 Vital chart was stopped 16:43:43 [facility] Findings: MVD- PCI performed (see procedure note) 16:43:44 Operative report dictated upon procedure completion. 16:43:44 See physician's report for complete and final results. 16:43:47 Report given to [facility]. 16:43:49 Patient transfered to [facility] with Bed. 16:45:08 ACT drawn and resulted at 301 seconds. (normal therapeutic range 180-240 seconds). 16:46:25 Procedure ended. 16:46:25 Full Disclosure recording stopped 16:46:32 ACC-PCI Only Patient was given prescriptions, or instructed by Alfredo Medellin MD to start/continue the following medications upon discharge: Plavix 16:47:33 End room use (Document Last) 16:47:44 End room use (Document Last) 16:48:06 End room use (Document Last) 16:48:26 End room use (Document Last) Intervention Summary Intervention Notes Time ActionType Lesion and Equipment Used Action# Pressure Duration Attributes 16:37:23 Place stent Ramus MANDEEP RX 2.5 x 1 11 00:00 12 stent ([id number]) 16:37:37 Reinflate [place] MANDEEP RX 2.5 x 2 15 00:00 stent 12 stent balloon ([id number]) Device Usage Item Name Manufacture Quantity Catalog Number Hospital Part Current Minimal Lot# / Charge Number Stock Stock Serial# Code ACIST Syringe Acist 1 75076 136483 625171 626356 20 (37107) Medical Systems Inform Genomics Bag Decanter Microtek 1 2001S 111280 48458 988474 5 (2001S) Medical Inc. ACIST Hand Acist 1 54382 145482 031291 773300 5 Control Medical (73204) Systems Inc ACIST Manifold Acist 1 09665 579903 530145 910263 5 (22001) Medical Systems [employer]form [employer] Tegaderm 4 x 4 3M 1 1626W 335123 201096 898685 5 (1626W) Medline Cath Medline 1 [id number] 371239 76316 150152 5 Pack ([id number]) DIAGNOSTIC Cardinal 1 [id number] 974027 22693 524695 30 Multipack 5Fr Health catheter set (ZZ2017) EMERALD Guide Cardinal 2 502-455 365620 004708 263422 5 Wire (502-455) Health SHEATH 6FR Terumo 1 QJI105 293784 441487 279985 40 [place] (TEJ734) MULTIPACK Cardinal 1 445163 5 Pigtail 5 Fr Health catheter MULTIPACK JL Cardinal 1 092873 5 4.0 5Fr Health catheter MULTIPACK 3DRC Cardinal 1 875887 5 5Fr catheter Health DIAGNOSTIC AR2 Cardinal 1 [id number] 435187 917151 542461 20 MOD 5 Fr Health catheter (915808L) Farley Farley 1 59863D 037023 051165974 405178 5 Verrata Plus pressure wire (28433Z) INFLATOR Merit Merit 1 DN8589 106409 250030 767955 15 [facility] Medical (NC5432) GUIDE 6FR AR Medtronic 1 [id number] 325931 96903 063564 1 2.0 catheter (PA6SD56) GUIDE 6FR Cardinal 1 [id number] 302454 695455 085932 3 XBLAD 4.0 Health catheter (81754992) GRAPHIX 182cm [place] 1 [id number] 013338 705389 017305 5 guide wire [place] ECS ([id number]) MANDEEP RX 2.5 x Medtronic 1 [id number] 969740 1118937 971965 5 [id number] 12 stent ([id number]) EXOSEAL 6Fr Cardinal 1 EX600 974655 119350 708868 10 (EX600) Health Signature Audit [place] Stage Time Signature Unsigned Intra-Procedure 04/17/2019 Denia Ordaz 4:47:44 PM RT(R) Intra-Procedure 04/17/2019 Estee Ortiz RN 4:48:26 PM Intra-Procedure 04/17/2019 Alfredo Medellin 4:48:55 PM [facility] [address] [place] [address]
[2019-04-17 11:19] LABS: BASOPHILS 0.5 % (0-2); EOSINOPHILS 3.5 % (0-7); HEMATOCRIT 42.4 % (42.0-54.0); HEMOGLOBIN 13.9 g/dL (13.5-17.5); IMMATURE GRANULOCYTES 0.2 % (0-5); LYMPHOCYTES 30.8 % (15-50); MCHC 32.8 g/dL (31.0-37.0); MCV 91.6 fL (80.0-100.0); MEAN PLATELET VOLUME 10.9 fL (7.4-10.4); PLATELET COUNT 199 10x3/uL (130-400); RBC 4.63 10x6/uL (4.20-6.10); RDW 13.2 % (11.5-14.5); WBC 5.5 10x3/uL (4.8-10.8)
[2019-04-17 11:31] LABS: CALC OSMOLALITY 282 mosm/kg (275-300); CALCIUM 9.1 mg/dL (8.5-10.1); CARBON DIOXIDE 29.7 mmol/L (21.0-32.0); CHLORIDE - SERUM 105 mmol/L (98-107); GLUCOSE 81 mg/dL (74-106); POTASSIUM - SERUM 4.2 mmol/L (3.5-5.1); SODIUM 142 mmol/L (136-145); UREA NITROGEN 15 mg/dL (7-18); eGFR NON AFRICAN AMERICAN 78 mL/min (90-120)
[2019-04-17 11:42] LABS: ALBUMIN 3.5 g/dL (3.4-5.0); ALKALINE PHOSPHATASE 62 U/L (30-120); ALT (SGPT) 31 U/L (10-68); BILIRUBIN - TOTAL 0.44 mg/dL (0.2-1.3); CREATINE KINASE 99 UL (21-232); MAGNESIUM - SERUM 2.1 mg/dL (1.8-2.4); PROTEIN - SERUM 7.2 g/dL (6.4-8.2)
[2019-04-17 11:43] LABS: TROPONIN-I < 0.017 ng/mL (0.000-0.060)
[2019-04-17 12:00] LABS: APTT 28.7 SECONDS (22.8-39.4); INR 1.02 (0.85-1.17); PROTIME 13.3 SECONDS (11.6-15.0)
--- NOTE | 2019-04-17 16:48 | HP ---
PATIENT: TIMO FLETCHER MEDICAL RECORD: [id number] ACCOUNT: [id number] [facility] : 45 ADMISSION DATE: 04/17/19 PCP: JOSSELINE PROCTOR DO HISTORY AND PHYSICAL EXAMINATION DIAGNOSES: 1. Unstable angina. 2. Coronary artery disease. 3. Status post coronary artery bypass graft surgery. 4. Hypertension. 5. Hyperlipidemia. 6. Family history of coronary artery disease. HISTORY OF PRESENT ILLNESS: Mr. Fletcher has had increasing episodes of chest pain, chest discomfort compatible with angina. I saw him in the Emergency Room this last weekend. He was having chest discomfort that was not like that of his previous angina. However, since then the chest pain is escalating and is now like his previous angina, it is a dull aching pressure sensation across the anterior chest, like a band around his chest. He is having episodes at rest and has a class IV anginal symptomatology. PHYSICAL EXAMINATION: CONSTITUTIONAL/GENERAL APPEARANCE: Well nourished, well developed, appears stated age. EYES: Lids and conjunctivae noninjected. No discharge. No pallor. ENT: Lips within normal limit. No cyanosis. No pallor. NECK: Carotid arteries, bilateral normal upstroke. No bruits. No thrills. No jugular venous pressure or distention. CERVICAL LYMPH NODES: Nontender. Nonenlarged. THYROID: Not enlarged. No nodules. CARDIOVASCULAR: Precordial exam, nondisplaced. No heaves or pericardial thrills. Rate and rhythm, regular. Heart sounds, normal S1, normal S2. No S3, no gallop, no rub. Systolic murmur, not heard. Diastolic murmur, not heard. RESPIRATORY: Respiratory effort, unlabored. Normal curvature. No thoracic deformity. No chest wall tenderness. Percussion, resonant. Auscultation, clear. No wheezes, no rales, no rhonchi. ABDOMEN: Soft, nondistended, nontender. No abdominal pain, no vomiting and normal appetite. MUSCULOSKELETAL: No joint tenderness, normal gait, normal tone. SKIN: Warm and dry. OVERALL IMPRESSION: Chest pain compatible with angina in an escalating fashion in a patient with a past history of bypass surgery, hypertension, hyperlipidemia. We will proceed with coronary angiography. Further care depends upon findings of the angiography. TRANSINT:[id number] Voice Confirmation ID: [id number] DOCUMENT ID: [id number] HISTORY AND PHYSICAL [id number] TIMO FLETCHER JEFFREY MD at 1648 CC: [id number] DICTATION DATE: 04/17/19 1223 SURGICAL ENDOSCOPIST: 04/17/19 1352 REG [place] [id number] [place] [id number]
--- NOTE | 2019-04-17 17:06 | NUR ---
PT ARRIVED VIA BED. DENIES NEEDS OR PAIN AT THIS TIME. VSS. CALL LIGHT WITHIN REACH. DRESSING TO RIGHT GROIN, CDI. HOB FLAT. URINAL AT BEDSIDE. BED IN LOWEST POSITION.
[2019-04-17 17:40] VITALS: BP 142/73; Ht 185.4 cm; Wt 81.8 kg
[2019-04-17 18:05] LABS: CKMB 0.8 U/L (0.0-3.6); CREATINE KINASE 80 UL (21-232)
[2019-04-17 18:09] LABS: TROPONIN-I < 0.017 ng/mL (0.000-0.060)
--- NOTE | 2019-04-17 19:00 | NUR ---
REPORT RECEIVED, WILL CONTINUE POC. PATIENT IS AAOX4, LYING SUPINE DUE TO RECENT HEART CATH, INFORMED PATIENT HE CAN SIT UP AT 2100. NO S/S OF DISTRESS OBSERVED, RR EVEN AND UNLABORED ON ROOM AIR. PIV TO LT AC, PATENT, SL, DRSG C/D/I. PATIENT DENIES NEEDS AT THIS TIME. CL IN REACH, BED LOCKED AND LOWERED. WILL CTM.
[2019-04-17 20:00] VITALS: BP 125/67
[2019-04-18] VITALS: BP 132/86
[2019-04-18 00:04] LABS: CKMB 0.9 U/L (0.0-3.6); CREATINE KINASE 88 UL (21-232); TROPONIN-I 0.042 ng/mL (0.000-0.060)
--- NOTE | 2019-04-18 01:40 | NUR ---
I have reviewed this patient and I concur with the Shift Assessment completed by the Licensed Practical Nurse today this shift.
[2019-04-18 04:00] VITALS: BP 124/80
[2019-04-18] MEDS ORDERED: PLAVIX75 MG PO (09:22)
--- NOTE | 2019-04-18 10:23 | NUR ---
PT DISCHARGED HOME VIA WHEELCHAIR WITH FAMILY. PIV REMOVED WITH CATHETER TIP FULLY INTACT. TELEMETRY REMOVED AND RETURNED. PT SIGNED PROPER DISCHARGE INSTRUCTIONS AND REMOVED ALL VALUABLES FROM THE ROOM.
--- NOTE | 2019-04-18 16:48 | OP ---
PATIENT NAME: TIMO FLETCHER MEDICAL RECORD: [id number] :45 LOCATION:D.OPS ADMISSION DATE: SURGEON: ALY LUCIO MD DATE OF OPERATION: 04/17/2019 PROCEDURES: 1. PTCA stent ramus intermedius. 2. Left heart catheterization. 3. Selective coronary angiography. 4. Vein graft angiography. 5. MARCIAL angiography. 6. IFR. 7. Left ventriculogram. INDICATION: Unstable angina and coronary artery disease. PROCEDURE PERFORMED: After informed consent was obtained and after a detailed description of risks, benefits as well as alternative therapies, the patient elected to proceed with angiogram and angioplasty. The right femoral area was prepped and draped in normal sterile fashion. Right femoral artery was cannulated via modified Seldinger technique with placement of 6-Maltese sheath. All catheters exchanged through this sheath. FINDINGS: Left ventriculogram was performed in standard 30-degree JOSE view, reveals good cardiac wall motion throughout all segments. Overall ejection fraction estimated 60%. SELECTIVE CORONARY ANGIOGRAPHY: 1. Left main is with no significant angiographic disease. 2. Left anterior descending is totally occluded. 3. There is a large ramus intermedius that is non-grafted has a 90% stenosis at its proximal aspect. 4. Left circumflex is then totally occluded. 5. Right coronary has moderate irregularities, but no flow-limiting stenosis. 6. MARCIAL to the LAD is widely patent. Distal LAD is widely patent. 7. Vein graft to the LAD diagonal is widely patent. Distal LAD diagonal is widely patent. 8. Vein graft to the circumflex has a questionable stenosis in mid vessel; however, IFR was normal. PTCA STENT OF THE RAMUS INTERMEDIUS: The stent used was a 2.5 x 12 mm Dev taken to 17 atmospheres. Result was 0% residual stenosis. OVERALL IMPRESSION: Successful percutaneous transluminal coronary angioplasty stent of the LAD diagonal. Successful PTCA stent of the ramus intermedius going from 90% initial stenosis to 0% residual. TRANSINT:[id number] Voice Confirmation ID: [id number] DOCUMENT ID: [id number] OPERATIVE REPORT [id number] TIMO FLETCHER JEFFREY MD at 1648 CC: [id number] DICTATION DATE: 04/17/19 1649 HOSPITALITY COORDINATOR: 04/18/19 0014 DEP CLI 04/18/19 [facility] [address] [place] [address]
--- NOTE | 2019-04-18 16:48 | DS ---
PATIENT:TIMO FLETCHER :45 MEDICAL RECORD: [id number] DISCHARGE SUMMARY ADMISSION DATE: 04/17/19 DISCHARGE DATE: 04/18/19 DATE OF DISCHARGE: 04/17/2019. DIAGNOSES: 1. Unstable angina. 2. Coronary artery disease. 3. Percutaneous transluminal coronary angioplasty stent, non-grafted ramus intermedius this admission. 4. Bypass surgery. 5. Hypertension. 6. Hyperlipidemia. HISTORY: Mr. Fletcher presents with anginal symptomatology, found to have 90% stenosis of a non-grafted large ramus intermedius, underwent successful PTCA stent of this territory with Dev drug-eluting stent, discharged home with the addition of Plavix to his medical regimen. Follow up with [facility] in 1 month. TRANSINT:[id number] Voice Confirmation ID: [id number] DOCUMENT ID: [id number] ALY LUCIO MD at 1648 CC: [id number] DICTATION DATE: 04/17/19 1643 PAPER MACHINE TENDER: 04/18/19 0745 [facility] CLI 04/18/[address] [address]
== END 2019-04-18 10:24 | disposition home or self-care (01) ==
LOC: D.ER 10:34 → D.M2 10:34 → D.OPS 10:34 → EDSTATUS 12:11 → D.M2 16:21 → D.OPS 04-18 10:24
PROVIDERS: Emergency Medicine; ATTEND Internal Medicine Interventional Cardiology
DX: I25.110 Atherosclerotic heart disease of native coronary artery with unstable angina pectoris (principal); Z95.1 Presence of aortocoronary bypass graft; I10 Essential (primary) hypertension; E78.5 Hyperlipidemia, unspecified
CPT/HCPCS: 93459; 93571; C9600

== ENCOUNTER → 2019-12-10 11:21 | Outpatient (CLI) | payer MEDICARE ==
[2019-04-17 17:40] VITALS: BMI 23.8
--- NOTE | ~2019-12-10 | EC ---
PATIENT:TIMO FLETCHER DATE OF SERVICE: 12/10/19 SEX: M MEDICAL RECORD: [id number] DATE OF : 45 LOCATION:D.[facility]ERLY [facility] AGE OF PATIENT: 74 ADMISSION DATE: 12/10/19 REFERRING PHYSICIAN: INTERPRETING PHYSICIAN: ALTAGRACIA WEST MD ECHOCARDIOGRAM REPORT ECHO CHARGES 4 ECHO COMPLETE Date: 12/10/19 CLINICAL DIAGNOSIS: HX OF CAD/CABG/ MITRAL AND TRICUSPID REGURG ECHOCARDIOGRAPHIC MEASUREMENTS (adult normal given) AC root (d.<3.7cm) 3.3 cm LV Septum d (<1.2 cm> 1.5 cm Valve Excursion 2.0 cm LV Septum (systole) 1.7 cm Left Atria (s.<4.0cm> 3.3 cm LVPW d(<1.2cm) 1.5 cm RV (d.<2.3cm) 4.3 cm LVPW (sytole) 1.7 cm LV diastole(<5.6CM) 4.3 cm MV E-F(>70mm/sec) cm LV systole 2.4 cm LVOT Diameter 1.9 cm MV exc.(>10mm) 1.1 cm Est.ejection fraction (50-75%) % DOPPLER: LVIT cm/sec A 70.0 cm/sec E 61.0 cm/sec LA cm/sec RVSP 36 mmHg LVOT 116 cm/sec AOP1/2T m/s Asc. Ao 120 cm/sec RVOT 89 cm/sec RA cm/sec PA 109 cm/sec AV Gradient Peak 5.72 mmHg AV Mean 3.23 mmHg AV Area 2.8 cm MV Gradient Peak 3.51 mmHg MV Mean 1.20 mmHg MV Area cm COMMENTS: Weather Observer: 2 LYRIC GARRETT Refuse Driver: 3 Dr. Dickerson TAPE# PACS Pericardial Effusion N DATE OF SERVICE: Adequate 2D, color flow imaging, spectral Doppler, and M-Mode. LVH is present. LV internal dimensions are normal. Wall motion is normal. EF is greater than or equal to 55%. Aortic valve is tricuspid. No evidence of stenosis by Doppler interrogation. Left atrium is normal. Mitral valve shows no prolapse. Mild MR. Right-sided chambers are grossly normal. Trace TR. TRANSINT:[id number] Voice Confirmation ID: [id number] DOCUMENT ID: [id number] ECHOCARDIOGRAM REPORT [id number] TIMO FLETCHER,ALTAGRACIA Panda MD CC: [id number] DICTATION DATE: 12/10/19 1536 RESPIRATORY CARE TECHNICIAN: 12/11/19 0030 [facility] CLI 12/10/19 [id number] [place] [address]
== END | disposition home or self-care (01) ==
LOC: D.HCCECHO 11:21
PROVIDERS: ATTEND Internal Medicine Interventional Cardiology
DX: I25.10 Atherosclerotic heart disease of native coronary artery without angina pectoris (principal)